=== PATIENT | female | born 1985 | race American Indian/Alaskan Native ===

== ENCOUNTER 2017-11-07 15:29 | Emergency (ER) | payer MEDICAID, OTHER ==
[2017-11-07 16:02] VITALS: BP 118/47
--- NOTE | 2017-11-07 17:08 | EDM.PDOC ---
ED HPI GENERAL MEDICAL PROBLEM - General Chief Complaint: Abdominal Pain Stated Complaint: ABD PAIN Time Seen by Provider: 11/07/17 16:20 Source of Information: Reports: Patient History Limitations: Reports: No Limitations - History of Present Illness INITIAL COMMENTS - FREE TEXT/NARRATIVE: 32-year-old female with lower abdominal pain for the past couple of days. In reviewing her record she was in [place] 3 weeks ago for similar symptoms, she says it is similar but today it somewhat worse. No fevers or chills, denies nausea or vomiting or diarrhea. No urinary symptoms. Onset: Unknown/Unsure Quality: Reports: Ache, Other (Cramping pain worse with movement) Severity: Moderate Associated Symptoms: Denies: Fever/Chills Lower Abdomen Pain Score (Numeric/FACES): 7 - Related Data Allergies Allergy/AdvReac Type Severity Reaction Status Date / Time baclofen Allergy Rash Verified 11/07/17 15:54 tramadol Allergy Rash Verified 11/07/17 15:54 Home Meds: Home Meds Ibuprofen 400 mg PO ASDIRECTED PRN 01/31/16 [History] Buprenorphine HCl/Naloxone HCl [Suboxone 4 mg-1 mg Sl Film] 1 each SL DAILY 03/20 [History] Past Medical History HEENT 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: Impaired Vision Other HEENT History: Dental caries Genitourinary 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: UTI, Recurrent 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: , 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 Psychiatric 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: Anxiety, Depression Hematologic 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: Blood Transfusion(s) - Past Surgical History GI Surgical 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: Cholecystectomy Social & Family History - Tobacco Use Smoking Status *Q: Never Smoker Years of Tobacco use: 13 Packs/Tins Daily: 1 Used Tobacco, but Quit: No Second Hand Smoke Exposure: No - Caffeine Use Caffeine Use: Reports: Soda, Tea - Alcohol Use Days Per Week of Alcohol Use: 1 Number of Drinks Per Day: 5 Total Drinks Per Week: 5 - Recreational Drug Use Recreational Drug Use: No - Living Situation & Occupation Living situation: Reports: Single, with Significant Other ED ROS GENERAL - Review of Systems Review Of Systems: See Below Constitutional: Denies: Fever, Chills, Malaise Respiratory: Denies: Shortness of Breath Cardiovascular: Denies: Chest Pain GI/Abdominal: Reports: Abdominal Pain, Constipation. Denies: Diarrhea, Nausea, Vomiting : Reports: No Symptoms Skin: Reports: No Symptoms Neurological: Reports: No Symptoms Free Text/Narrative/Comment: Patient does have irregular periods since of her child year ago. ED EXAM, GI/ABD - Physical Exam Exam: See Below Exam Limited By: No Limitations General Appearance: Alert, No Apparent Distress Eyes: Bilateral: Normal Appearance ( no jaundice) Respiratory/Chest: No Respiratory Distress, Lungs Clear, Chest Non-Tender Cardiovascular: Regular Rate, Rhythm GI/Abdominal Exam: Soft, Guarding (Patient is tender and guarding across the lower abdomen especially on the left side. Also has a mild amount of rebound tenderness.), Tender Neurological: Alert, Oriented Psychiatric: Normal Affect, Normal Mood Skin Exam: Warm, Dry Course - Vital Signs Last Recorded V/S: Last Vital Signs Temp 96.7 F 11/07/17 16:01 Pulse 56 L 11/07/17 16:01 Resp 16 11/07/17 16:01 BP 118/47 L 11/07/17 16:01 Pulse Ox 99 11/07/17 16:01 - Orders/Labs/Meds Orders: Active Orders 24 hr Category Date Time Status Abdomen Pelvis w Cont [CT] Stat Exams 11/07/17 17:07 Taken Labs: Laboratory Tests 11/07/17 11/07/17 Range/Units 16:22 16:22 WBC 9.0 (4.5-11.0) K/uL RBC 5.06 (3.30-5.50) M/uL Hgb 9.9 L D (12.0-15.0) g/dL Hct 33.2 L (36.0-48.0) % MCV 66 L (80-98) fL MCH 20 L (27-31) pg MCHC 30 L (32-36) % Plt Count 480 H (150-400) K/uL Neut % (Auto) 57 (36-66) % Lymph % (Auto) 31 (24-44) % [place] % (Auto) 8 H (2-6) % Eos % (Auto) 3 (2-4) % Baso % (Auto) 1 (0-1) % Sodium 142 (140-148) mmol/L Potassium 3.5 L (3.6-5.2) mmol/L Chloride 103 (100-108) mmol/L Carbon Dioxide 29 (21-32) mmol/L Anion Gap 13.5 (5.0-14.0) mmol/L BUN 9 (7-18) mg/dL Creatinine 0.7 (0.6-1.0) mg/dL Est Cr Clr Drug Dosing 105.74 mL/min Estimated GFR (MDRD) > 60 (>60) Glucose 126 H (74-106) mg/dL Calcium 8.5 (8.5-10.1) mg/dL Total Bilirubin 0.3 (0.2-1.0) mg/dL AST 19 D (15-37) U/L ALT 40 D (12-78) U/L Alkaline Phosphatase 124 H (46-116) U/L Total Protein 7.8 (6.4-8.2) g/dL Albumin 3.8 (3.4-5.0) g/dL Globulin 4.0 H (2.3-3.5) g/dL Albumin/Globulin Ratio 1.0 L (1.2-2.2) Lipase 83 (73-393) U/L Meds: Medications Discontinued Medications Generic Name Dose Route Start Last Admin Trade Name Vicente PRN Reason Stop Dose Admin Sodium Chloride 100 mls @ 3.5 mls/sec 11/07/17 17:30 11/07/17 17:33 Normal Saline IV 11/07/17 18:00 3.5 mls/sec ASDIRECTED MANASA Administration Iopamidol 100 ml 11/07/17 17:23 11/07/17 17:32 Isovue-300 (61%) IV 11/08/17 17:24 100 ml . DIRECTED PRN Administration RADIOLOGY EXAM Sodium Chloride 10 ml 11/07/17 17:23 11/07/17 17:32 Saline Flush FLUSH 11/07/17 23:00 10 ml ASDIRECTED PRN Administration Keep Vein Open - Re-Assessments/Exams Free Text/Narrative Re-Assessment/Exam: 11/07/17 17:45 CBC shows a normal white count, hemoglobin is 9.9. Extended Chemistry panel was not helpful. An IV was started and the patient obtained a CT scan of the abdomen and pelvis with IV contrast. 11/07/17 18:20 CT scan revealed moderate constipation. No other acute findings. When I discussed with the patient she admitted she is on stool softeners to avoid constipation while on the Suboxone but she hasn't been taking them lately. We discussed MiraLAX or other treatment forms but she is just going to restart her stool softeners and return if worsening. Departure - Departure Time of Disposition: 18:37 Disposition: Home, Self-Care 01 Condition: Good Clinical Impression: Constipation by delayed colonic transit Abdominal pain Qualifiers: Abdominal location: lower abdomen, unspecified Qualified Code(s): R10.30 - Lower abdominal pain, unspecified - Discharge Information Instructions: Constipation, Adult, [id number] Referrals: [facility] [Primary Care Provider] - Forms: ED Department Discharge Care Plan Goals: Take stool softeners as directed on a regular basis for several days, drink lots of water, and add MiraLAX if needed to increased bowel movements. Return if worsening such as fever or increased pain. - My Orders Last 24 Hours: My Active Orders 11/07/17 17:07 Abdomen Pelvis w Cont [CT] Stat - Assessment/Plan Last 24 Hours: My Active Orders 11/07/17 17:07 Abdomen Pelvis w Cont [CT] Stat
[2017-11-07] MEDS ORDERED: Iopamidol 612 MG/ML 100 ML Bottle IV PRN (17:23)
[2017-11-07] MEDS ORDERED: Sodium Chloride 0.9% 10 ML Syringe FLUSH PRN (17:23)
[2017-11-07] MEDS ORDERED: Sodium Chloride 0.9% 100 ML IV SCH (17:30)
== END 2017-11-07 18:37 | disposition home or self-care (01) ==
LOC: JP.ED 15:29
DX: K59.01 Slow transit constipation (principal); F32.9 Major depressive disorder, single episode, unspecified; Z88.5 Allergy status to narcotic agent; Z88.8 Allergy status to other drugs, medicaments and biological substances
CPT/HCPCS: 36415; 74177; 80053; 83690; 85025; 99284; J7030; J7050; Q9967; 99283

== ENCOUNTER 2019-01-02 18:17 | Emergency (ER) | payer MEDICAID ==
[2019-01-02 18:31] VITALS: BP 133/60
--- NOTE | 2019-01-02 18:37 | EDM.PDOC ---
ED HPI GENERAL MEDICAL PROBLEM - General Chief Complaint: Respiratory Problem Stated Complaint: POSSIBLE SINUS INFECTION Time Seen by Provider: 01/02/19 18:25 Source of Information: Reports: Patient History Limitations: Reports: No Limitations - History of Present Illness INITIAL COMMENTS - FREE TEXT/NARRATIVE: 33-year-old female who is 35 weeks gestation, has had worsening nasal congestion and cough over the past several days. She was evaluated yesterday for possible " labor". Intermittent fevers, and her cough is becoming productive. No shortness of breath. No abdominal pain today. She did not get an influenza vaccine. Onset: Gradual Duration: Day(s): (3-4 days) Associated Symptoms: Reports: Cough, Fever/Chills, Other (Nasal congestion). Denies: Nausea/Vomiting, Shortness of Breath Headache Pain Score (Numeric/FACES): 10 - Related Data Allergies Allergy/AdvReac Type Severity Reaction Status Date / Time baclofen Allergy Rash Verified 01/02/19 18:26 tramadol Allergy Rash Verified 01/02/19 18:26 Home Meds: Home Meds Ibuprofen 200 mg PO ASDIRECTED PRN 01/31/16 [History] Buprenorphine HCl/Naloxone HCl [Suboxone 4 mg-1 mg Sl Film] 16 mg PO DAILY 11/07 [History] Pnv No.95/Ferrous Fum/Folic AC [ Caplet] 1 each PO DAILY 01/01/19 [ History] Past Medical History HEENT 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: Impaired Vision Other HEENT History: Dental caries Genitourinary 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: UTI, Recurrent 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: , 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 Neurological 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: Concussion Psychiatric 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: Anxiety, Depression Hematologic 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: Blood Transfusion(s) - Past Surgical History GI Surgical 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: Cholecystectomy Social & Family History - Tobacco Use Smoking Status *Q: Never Smoker - Caffeine Use Caffeine Use: Reports: Soda, Tea - Recreational Drug Use Recreational Drug Use: Yes Recreational Drug Type: Reports: Heroin - Living Situation & Occupation Living situation: Reports: Single, with Significant Other ED ROS GENERAL - Review of Systems Review Of Systems: See Below Constitutional: Reports: Fever, Chills, Malaise HEENT: Reports: Rhinitis. Denies: Ear Pain, Throat Pain Respiratory: Reports: Cough. Denies: Shortness of Breath, Wheezing Cardiovascular: Denies: Chest Pain GI/Abdominal: Denies: Abdominal Pain, Nausea, Vomiting Skin: Denies: Rash Neurological: Denies: Headache ED EXAM, GENERAL - Physical Exam Exam: See Below Exam Limited By: No Limitations General Appearance: Alert, No Apparent Distress Ears: Normal TMs Nose: Other (Significant congestion, unable to breathe through nares) Throat/Mouth: Normal Inspection Respiratory/Chest: No Respiratory Distress, Lungs Clear GI/Abdominal: Non-Tender Course - Vital Signs Last Recorded V/S: Last Vital Signs Temp 97.8 F 01/02/19 18:25 Pulse 90 01/02/19 18:25 Resp 16 01/02/19 18:25 BP 133/60 01/02/19 18:25 Pulse Ox 99 01/02/19 18:25 - Re-Assessments/Exams Free Text/Narrative Re-Assessment/Exam: 01/02/19 18:37 Influenza antigens were obtained. 01/02/19 19:03 Influenza as her negative so patient will be covered for sinusitis with amoxicillin 500 mg 3 times a day for 10 days. She can recheck next week if not improving satisfactorily. Departure - Departure Time of Disposition: 19:11 Disposition: Home, Self-Care 01 Condition: Good Clinical Impression: Sinusitis Qualifiers: Sinusitis location: unspecified location Chronicity: acute Recurrence: non- recurrent Qualified Code(s): J01.90 - Acute sinusitis, unspecified - Discharge Information Instructions: Sinusitis, Adult, Pqdd-up-[id number] Referrals: Cathie Sena CNM [Primary Care Provider] - Forms: ED Department Discharge Care Plan Goals: Take amoxicillin 3 times a day until gone. Rest and fluids are important, recheck next week if not improving satisfactorily.
== END 2019-01-02 19:11 | disposition home or self-care (01) ==
LOC: JP.ED 18:17
DX: J01.90 Acute sinusitis, unspecified (principal); Z79.899 Other long term (current) drug therapy; Z88.5 Allergy status to narcotic agent; Z88.8 Allergy status to other drugs, medicaments and biological substances
CPT/HCPCS: 87804; 87804-59; 99283

== ENCOUNTER 2019-01-29 11:39 | Inpatient (IN) | payer MEDICAID ==
[2019-01-29] MEDS ORDERED: Misoprostol 50 MCG (1/2 of 100 MCG) Tab VAG ONE (14:07)
--- NOTE | 2019-01-29 14:27 | PCM.LDHP ---
<Radha Michele - Last Filed: 01/29/19 14:17> L&D History of Present Illness - General Date of Service: 01/29/19 (Induction of labor) Admit Problem/Dx: Patient Status Order with Admit Dx/Problem 01/29/19 14:04 Admission Status [Patient Status] [ADT] Routine Admission Diagnosis/Problem Admission Diagnosis/Problem Elective induction of labor planned Source of Information: Patient History Limitations: Reports: No Limitations - History of Present Illness Introduction:: 33 yo Mustapha had a clinic appointment today for follow up on possible cholestasis labs. Cholestasis labs all negative, bile salts 7. NST in clinic was non- reactive, moderate variability. She was sent to OB and give food, fluids, ambulation and still after several hours has not had a reactive NST. There is moderate variability but no accelerations. Her last BPP/NST on Friday of this week was 10/10. Discussed risks of continuing with possible cholestasis and a non-reactive NST including demise. Options given to patient included a contraction stress test or a Cytotec induction of labor. She chooses Cytotec. She is on Suboxone currently. She is also anemic, received iron infusions and last Hgb prior to hospitalization was 9.5. KATY 21.6 on last US. Hx PPH. Timing/Duration: Reports: minutes: (5-8) Location, : Reports: Abdomen Quality: Reports: Dull Severity: Moderate Pain Score: 4 Improves with: Reports: None Worsens with: Reports: None Associated Symptoms: Denies: vaginal bleeding, vaginal fluid - Related Data Allergies/Adverse Reactions: Allergies Allergy/AdvReac Type Severity Reaction Status Date / Time baclofen Allergy Rash Verified 01/02/19 18:26 tramadol Allergy Rash Verified 01/02/19 18:26 Home Medications: Home Meds Buprenorphine HCl/Naloxone HCl [Suboxone 4 mg-1 mg Sl Film] 16 mg PO DAILY 11/07 [History] Pnv No.95/Ferrous Fum/Folic AC [ Caplet] 1 each PO DAILY 01/01/19 [ History] Past Medical History HEENT 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: Impaired Vision Other HEENT History: Dental caries Genitourinary 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: UTI, Recurrent 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 MARKETING 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: , 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 , Other (See Below) ( 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) LMP (Approximate): Neurological 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: Concussion Psychiatric 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: Anxiety, Depression Hematologic 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: Blood Transfusion(s) - Past Surgical History GI Surgical 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: Cholecystectomy Social & Family History - Caffeine Use Caffeine Use: Reports: Soda, Tea - Living Situation & Occupation Living situation: Reports: Single, with Significant Other H&P Review of Systems - Review of Systems: Review Of Systems: See Below General: Reports: No Symptoms HEENT: Reports: No Symptoms Pulmonary: Reports: No Symptoms Cardiovascular: Reports: No Symptoms Gastrointestinal: Reports: No Symptoms Genitourinary: Reports: No Symptoms Musculoskeletal: Reports: No Symptoms Skin: Reports: No Symptoms Psychiatric: Reports: No Symptoms Neurological: Reports: No Symptoms Hematologic/Lymphatic: Reports: Anemia Immunologic: Reports: No Symptoms L&D Exam - Exam Exam: See Below - Vital Signs Vital Signs: Last Vital Signs Temp 35.7 C 01/29/19 11:55 Pulse 52 L 01/29/19 11:55 Resp 14 01/29/19 11:55 BP 117/73 01/29/19 11:55 Pulse Ox 97 01/29/19 11:55 Weight: 179 lb 7.3 oz - OB Specific Contraction Frequency (min): 5-8 Contraction Intensity: Mild to Moderate Movement: Active Heart Tones: Present Heart Tones per Min: 130 Heart Rate (FHR) Variability: Moderate (6-25 bmp) Presentation: Vertex Estimated Weight: 7.5# - Harrington Score Harrington Score Cervix Position: Posterior Harrington Score Consistency: Soft Harrington Score Effacement: 51-70% Harrington Score Dilation: 3-4 cm Harrington Score Infant's Station: -1 ,0 Harrington Score Total: 8 - Exam General: Alert, Oriented HEENT: PERRLA, Conjunctiva Clear, Hearing Intact, Mucosa Moist & [place], Pupils Equal, Pupils Reactive Neck: Supple, Trachea Midline Lungs: Clear to Auscultation, Normal Respiratory Effort Cardiovascular: Regular Rate, Regular Rhythm GI/Abdominal Exam: Normal Bowel Sounds, Soft, Non-Tender, No Organomegaly, No Distention, No Abnormal Bruit, No Mass, Pelvis Stable Rectal Exam: Normal Exam, Normal Rectal Tone Genitourinary: Normal external exam, Cervical dilitation, Enlarged uterus, Vaginal discharge. No: Vaginal bleeding Back Exam: Normal Inspection, Full Range of Motion Extremities: Normal Inspection, Normal Range of Motion, Non-Tender, No Pedal Edema, Normal Capillary Refill Skin: Warm, Dry, Intact Neurological: Cranial Nerves Intact, Reflexes Equal Bilateral Psychiatric: Alert, Normal Affect, Normal Mood - Problem List (1) Suboxone maintenance treatment complicating , antepartum SNOMED Code(s): 025742161, 691894215 ICD Code: O99.320 - DRUG USE COMPLICATING , UNSPECIFIED TRIMESTER; F11.20 - OPIOID DEPENDENCE, UNCOMPLICATED Status: Acute Current Visit: Yes (2) Term SNOMED Code(s): 52596102 ICD Code: Z34.80 - ENCOUNTER FOR SUPRVSN OF NORMAL , UNSP TRIMESTER Status: Acute Current Visit: Yes (3) Anemia affecting SNOMED Code(s): 46840055 ICD Code: O99.019 - ANEMIA COMPLICATING , UNSPECIFIED TRIMESTER Status: Acute Current Visit: Yes (4) NST (non-stress test) nonreactive SNOMED Code(s): 127322664, 170863630 ICD Code: O28.8 - OTHER ABNORMAL FINDINGS ON SCREENING OF MOTHER Status: Acute Current Visit: Yes Problem List Initiated/Reviewed/Updated: Yes Orders Last 24hrs: Active Orders 24 hr Category Date Time Status Admission Status [Patient Status] [ADT] Routine ADT 01/29/19 14:04 Active OB Check [OM.PC] Click to Edit Care 01/29/19 11:57 Ordered UA W/MICROSCOPIC [URIN] Routine Lab 01/29/19 11:57 Ordered Assessment/Plan Comment:: 01/29/19 Assessment: 33 yo at 39 1/7 weeks here for induction of labor due to non-reactive NST KATY slightly elevated Suboxone use in Hx PPH Harrington score 8 Plan: Cytotec 50 mcg vaginally for induction of labor Anticipate Would like an epidural for pain management <Lana Lane - Last Filed: 01/29/19 19:18> L&D History of Present Illness - General Admit Problem/Dx: Patient Status Order with Admit Dx/Problem 01/29/19 14:04 Admission Status [Patient Status] [ADT] Routine Admission Diagnosis/Problem Admission Diagnosis/Problem Elective induction of labor planned L&D Exam - Vital Signs Vital Signs: Last Vital Signs Temp 97.3 F 01/29/19 17:56 Pulse 67 01/29/19 17:56 Resp 16 01/29/19 17:56 BP 125/83 01/29/19 17:56 Pulse Ox 97 01/29/19 17:56 - Patient Data Lab Results Last 24 hrs: Laboratory Results - last 24 hr 01/29/19 01/29/19 01/29/19 Range/Units 11:57 14:42 14:45 WBC 8.4 (4.5-11.0) K/uL RBC 4.64 (3.30-5.50) M/uL Hgb 9.6 L (12.0-15.0) g/dL Hct 32.6 L (36.0-48.0) % MCV 70 L (80-98) fL MCH 21 L (27-31) pg MCHC 29 L (32-36) % Plt Count 171 (150-400) K/uL Neut % (Auto) 62 (36-66) % Lymph % (Auto) 29 (24-44) % [place] % (Auto) 7 H (2-6) % Eos % (Auto) 2 (2-4) % Baso % (Auto) 1 (0-1) % Urine Color Yellow Urine Appearance Clear Urine pH 6.0 (4.5-8.0) Ur Specific [place] 1.010 (1.008-1.030) Urine Protein Negative (NEGATIVE) mg/dL Urine Glucose (UA) Normal (NEGATIVE) mg/dL Urine Ketones Negative (NEGATIVE) mg/dL Urine Occult Blood Large (NEGATIVE) Urine Nitrite Negative (NEGATIVE) Urine Bilirubin Negative (NEGATIVE) Urine Urobilinogen Normal (NORMAL) mg/dL Ur Leukocyte Esterase Large (NEGATIVE) Urine RBC 0-5 (0-5) Urine WBC 5-10 H (0-5) Ur Epithelial Cells Moderate Amorphous Sediment Not seen Urine Bacteria Moderate Urine Mucus Not seen Urine Opiates Screen Negative (NEGATIVE) Ur Oxycodone Screen Negative (NEGATIVE) Urine Methadone Screen Negative (NEGATIVE) Ur Propoxyphene Screen Negative (NEGATIVE) Ur Barbiturates Screen Negative (NEGATIVE) Ur Tricyclics Screen Negative (NEGATIVE) Ur Phencyclidine Scrn Negative (NEGATIVE) Ur Amphetamine Screen Negative (NEGATIVE) U Methamphetamines Scrn Negative (NEGATIVE) Urine MDMA Screen Negative (NEGATIVE) U Benzodiazepines Scrn Negative (NEGATIVE) U Cocaine Metab Screen Negative (NEGATIVE) U Marijuana (THC) Screen Negative (NEGATIVE) Blood Type Gel Antibody Screen 01/29/19 Range/Units 14:45 WBC (4.5-11.0) K/uL RBC (3.30-5.50) M/uL Hgb (12.0-15.0) g/dL Hct (36.0-48.0) % MCV (80-98) fL MCH (27-31) pg MCHC (32-36) % Plt Count (150-400) K/uL Neut % (Auto) (36-66) % Lymph % (Auto) (24-44) % [place] % (Auto) (2-6) % Eos % (Auto) (2-4) % Baso % (Auto) (0-1) % Urine Color Urine Appearance Urine pH (4.5-8.0) Ur Specific [place] (1.008-1.030) Urine Protein (NEGATIVE) mg/dL Urine Glucose (UA) (NEGATIVE) mg/dL Urine Ketones (NEGATIVE) mg/dL Urine Occult Blood (NEGATIVE) Urine Nitrite (NEGATIVE) Urine Bilirubin (NEGATIVE) Urine Urobilinogen (NORMAL) mg/dL Ur Leukocyte Esterase (NEGATIVE) Urine RBC (0-5) Urine WBC (0-5) Ur Epithelial Cells Amorphous Sediment Urine Bacteria Urine Mucus Urine Opiates Screen (NEGATIVE) Ur Oxycodone Screen (NEGATIVE) Urine Methadone Screen (NEGATIVE) Ur Propoxyphene Screen (NEGATIVE) Ur Barbiturates Screen (NEGATIVE) Ur Tricyclics Screen (NEGATIVE) Ur Phencyclidine Scrn (NEGATIVE) Ur Amphetamine Screen (NEGATIVE) U Methamphetamines Scrn (NEGATIVE) Urine MDMA Screen (NEGATIVE) U Benzodiazepines Scrn (NEGATIVE) U Cocaine Metab Screen (NEGATIVE) U Marijuana (THC) Screen (NEGATIVE) Blood Type O POSITIVE Gel Antibody Screen Negative Result Diagrams: 01/29/19 14:45 Orders Last 24hrs: Active Orders 24 hr Category Date Time Status Admission Status [Patient Status] [ADT] Routine ADT 01/29/19 14:04 Active Communication Order [RC] ASDIRECTED Care 01/29/19 14:42 Active Communication Order [RC] Per Unit Routine Care 01/29/19 14:45 Active Non Stress Test [RC] Click to Edit Care 01/29/19 14:42 Active Insert Urinary Catheter [OM.PC] ASDIRECTED Care 01/29/19 14:45 Ordered Local Anesthetic Infusion Pump [RC] ASDIRECTED Care 01/29/19 14:45 Active Notify Provider Vital Signs [RC] PRN Care 01/29/19 14:43 Active Notify Provider [RC] PRN Care 01/29/19 14:42 Active OB Check [OM.PC] Click To Edit Care 01/29/19 11:57 Ordered PCEA Epidural [RC] ASDIRECTED Care 01/29/19 14:45 Active PCEA Epidural [RC] ASDIRECTED Care 01/29/19 14:45 Active Up ad Mey [RC] ASDIRECTED Care 01/29/19 14:42 Active Urinary Catheter Assessment [RC] ASDIRECTED Care 01/29/19 14:45 Active Verify Patient Consent Obtain [RC] ASDIRECTED Care 01/29/19 14:45 Active Vital Signs [RC] PER UNIT ROUTINE Care 01/29/19 14:42 Active Clear Liquid Diet [DIET] Diet 01/29/19 Lunch Active PATIENT RETYPE [BBK] Routine Lab 01/29/19 14:45 Results TYPE AND SCREEN [BBK] Routine Lab 01/29/19 14:45 Results Acetaminophen [Tylenol] Med 01/29/19 14:42 Active 650 mg PO Q4H PRN Ondansetron [Zofran] Med 01/29/19 14:42 Active 4 mg IV Q4H PRN Oxytocin/Normal Saline [Pitocin in NS 20 Units/1,000 ML Med 01/29/19 19:00 Active ] 20 unit in 1,000 ml IV TITRATE Sodium Chloride 0.9% [Saline Flush] Med 01/29/19 14:42 Active 10 ml FLUSH ASDIRECTED PRN ePHEDrine [ePHEDrine sulfate] Med 01/29/19 14:45 Active 5 mg IVPUSH ASDIRECTED PRN Epidural Catheter Management [OM.PC] Urgent Oth 01/29/19 14:45 Ordered Saline Lock Insert [OM.PC] Routine Oth 01/29/19 14:42 Ordered Resuscitation Status Routine Resus Stat 01/29/19 14:42 Ordered Medication Orders Acetaminophen (Tylenol) 650 mg PO Q4H PRN PRN Reason: Pain (Mild 1-3) and fever Ephedrine Sulfate (Ephedrine Sulfate) 5 mg IVPUSH ASDIRECTED PRN PRN Reason: BLOOD PRESSURE Oxytocin/Sodium Chloride (Pitocin In Ns 20 Units/1,000 Ml) 20 unit in 1,000 mls @ 6 mls/hr IV TITRATE MANASA; Protocol Ondansetron HCl (Zofran) 4 mg IV Q4H PRN PRN Reason: Nausea/Vomiting Sodium Chloride (Saline Flush) 10 ml FLUSH ASDIRECTED PRN PRN Reason: Keep Vein Open Assessment/Plan Comment:: I personally performed or re-performed the physical examination and medical decision making. I have verified all student documentation or findings, including history, physical exam and/or medical decision making. Lana Lane APRN, MICHEALM, CFNP
[2019-01-29] MEDS ORDERED: Acetaminophen 325 MG Tab PO PRN (14:42)
[2019-01-29] MEDS ORDERED: Sodium Chloride 0.9% 10 ML Syringe FLUSH PRN (14:42)
[2019-01-29] MEDS ORDERED: Ondansetron 4 MG/2 ML SDV IV PRN (14:42)
[2019-01-29] MEDS ORDERED: ePHEDrine 50 MG/ML SDV IVPUSH PRN ×2 (14:45→20:30)
--- NOTE | 2019-01-29 16:52 | PCM.PNLD ---
<Radha Michele - Last Filed: 01/29/19 16:53> Labor Progress Note - VS & Meds Vital Signs: Last Vital Signs Temp 35.7 C 01/29/19 12:30 Pulse 50 L 01/29/19 12:30 Resp 14 01/29/19 12:30 BP 117/73 01/29/19 12:30 Pulse Ox 98 01/29/19 12:30 Active Medications: Current Medications Acetaminophen (Tylenol) 650 mg PO Q4H PRN PRN Reason: Pain (Mild 1-3) and fever Ephedrine Sulfate (Ephedrine Sulfate) 5 mg IVPUSH ASDIRECTED PRN PRN Reason: BLOOD PRESSURE Ondansetron HCl (Zofran) 4 mg IV Q4H PRN PRN Reason: Nausea/Vomiting Sodium Chloride (Saline Flush) 10 ml FLUSH ASDIRECTED PRN PRN Reason: Keep Vein Open Discontinued Medications Lactated Ringer's (Ringers, Lactated) 1,000 mls @ 999 mls/hr IV ONETIME ONE Stop: 01/29/19 15:45 Misoprostol (Cytotec) 50 mcg VAG ONETIME ONE Stop: 01/29/19 14:08 Last Admin: 01/29/19 14:30 Dose: 50 mcg - Uterine Contractions Uterine Monitoring Mode: External [place] Contraction Frequency (min): 2-3 Contraction Duration (sec): 40-60 Contraction Intensity: Mild to Moderate Uterine Resting Tone: Soft - Monitoring Monitor Mode: External Ultrasound Heart Rate (FHR) Baseline: 130 Heart Rate (FHR) Variability: Moderate (6-25 bmp) Accelerations: Absent Decelerations: None Strip Review: Category I - Vaginal Exam Dilation (cm): 3 Effacement (Percent): 60 Station: 0 Cervical Position: Anterior Sterile Vaginal Exam Performed By: Radha Michele - Labor Progress (Free Text) Labor Progress: 01/29/19 Contractions are every 2-3 minutes and more painful per the patient. The cervix has moved from posterior to anterior. SVE 60/0. She is going to try the tub now for pain control. Category 1 tracing without accelerations, no decelerations. Membranes intact. <Lana Lane - Last Filed: 01/29/19 19:20> Labor Progress Note - VS & Meds Vital Signs: Last Vital Signs Temp 97.3 F 01/29/19 17:56 Pulse 67 01/29/19 17:56 Resp 16 01/29/19 17:56 BP 125/83 01/29/19 17:56 Pulse Ox 97 01/29/19 17:56 Active Medications: Current Medications Acetaminophen (Tylenol) 650 mg PO Q4H PRN PRN Reason: Pain (Mild 1-3) and fever Ephedrine Sulfate (Ephedrine Sulfate) 5 mg IVPUSH ASDIRECTED PRN PRN Reason: BLOOD PRESSURE Oxytocin/Sodium Chloride (Pitocin In Ns 20 Units/1,000 Ml) 20 unit in 1,000 mls @ 6 mls/hr IV TITRATE MANASA; Protocol Ondansetron HCl (Zofran) 4 mg IV Q4H PRN PRN Reason: Nausea/Vomiting Sodium Chloride (Saline Flush) 10 ml FLUSH ASDIRECTED PRN PRN Reason: Keep Vein Open Discontinued Medications Lactated Ringer's (Ringers, Lactated) 1,000 mls @ 999 mls/hr IV ONETIME ONE Stop: 01/29/19 15:45 Lactated Ringer's (Ringers, Lactated) 500 mls @ 999 mls/hr IV ONETIME ONE Stop: 01/29/19 18:57 Last Admin: 01/29/19 18:30 Dose: 999 mls/hr Misoprostol (Cytotec) 50 mcg VAG ONETIME ONE Stop: 01/29/19 14:08 Last Admin: 01/29/19 14:30 Dose: 50 mcg - Labor Progress (Free Text) Labor Progress: I personally performed or re-performed the physical examination and medical decision making. I have verified all student documentation or findings, including history, physical exam and/or medical decision making. Lana Lane APRN, CNM, CFNP
[2019-01-29] MEDS: Lactated Ringers 500 ML IV ONE (18:30)
--- NOTE | 2019-01-29 18:58 | PCM.PNLD ---
<Radha Michele - Last Filed: 01/29/19 18:53> Labor Progress Note - VS & Meds Vital Signs: Last Vital Signs Temp 36.3 C 01/29/19 17:56 Pulse 67 01/29/19 17:56 Resp 16 01/29/19 17:56 BP 125/83 01/29/19 17:56 Pulse Ox 97 01/29/19 17:56 Active Medications: Current Medications Acetaminophen (Tylenol) 650 mg PO Q4H PRN PRN Reason: Pain (Mild 1-3) and fever Ephedrine Sulfate (Ephedrine Sulfate) 5 mg IVPUSH ASDIRECTED PRN PRN Reason: BLOOD PRESSURE Lactated Ringer's (Ringers, Lactated) 500 mls @ 999 mls/hr IV ONETIME ONE Stop: 01/29/19 18:57 Last Admin: 01/29/19 18:30 Dose: 999 mls/hr Ondansetron HCl (Zofran) 4 mg IV Q4H PRN PRN Reason: Nausea/Vomiting Sodium Chloride (Saline Flush) 10 ml FLUSH ASDIRECTED PRN PRN Reason: Keep Vein Open Discontinued Medications Lactated Ringer's (Ringers, Lactated) 1,000 mls @ 999 mls/hr IV ONETIME ONE Stop: 01/29/19 15:45 Misoprostol (Cytotec) 50 mcg VAG ONETIME ONE Stop: 01/29/19 14:08 Last Admin: 01/29/19 14:30 Dose: 50 mcg - Uterine Contractions Uterine Monitoring Mode: External [place] Contraction Frequency (min): 2 Contraction Duration (sec): 50-60 Contraction Intensity: Moderate Uterine Resting Tone: Soft - Monitoring Monitor Mode: External Ultrasound Heart Rate (FHR) Baseline: 130 Heart Rate (FHR) Variability: Moderate (6-25 bmp) Accelerations: Absent Decelerations: Variable Strip Review: Category II - Vaginal Exam Dilation (cm): 3 Effacement (Percent): 60 Station: 0 Cervical Position: Anterior Sterile Vaginal Exam Performed By: Radha Michele - Labor Progress (Free Text) Labor Progress: 01/29/19 No cervical change from last check. Contractions q 2-3 minutes palpating moderate. Discussed benefits and risks of rupture including prolapsed cord, infection, increased contraction strength. She would like to proceed. AROM performed with scant amount of clear looking fluid, unable to tell fluid color for sure. Discussed augmentation with pitocin since there has been no cervical change. She is okay with this so we will start Pitocin per protocol. She is having some variable/late decelerations intermittently, has had no accelerations. Category [address] <[address]ana Lane - Last Filed: 01/29/19 19:20> Labor Progress Note - VS & Meds Vital Signs: Last Vital Signs Temp 97.3 F 01/29/19 17:56 Pulse 67 01/29/19 17:56 Resp 16 01/29/19 17:56 BP 125/83 01/29/19 17:56 Pulse Ox 97 01/29/19 17:56 Active Medications: Current Medications Acetaminophen (Tylenol) 650 mg PO Q4H PRN PRN Reason: Pain (Mild 1-3) and fever Ephedrine Sulfate (Ephedrine Sulfate) 5 mg IVPUSH ASDIRECTED PRN PRN Reason: BLOOD PRESSURE Fentanyl (Sublimaze) 100 mcg IVPUSH Q1H PRN PRN Reason: Pain (moderate 4-6) Oxytocin/Sodium Chloride (Pitocin In Ns 20 Units/1,000 Ml) 20 unit in 1,000 mls @ 6 mls/hr IV TITRATE MANASA; Protocol Ondansetron HCl (Zofran) 4 mg IV Q4H PRN PRN Reason: Nausea/Vomiting Sodium Chloride (Saline Flush) 10 ml FLUSH ASDIRECTED PRN PRN Reason: Keep Vein Open Discontinued Medications Lactated Ringer's (Ringers, Lactated) 1,000 mls @ 999 mls/hr IV ONETIME ONE Stop: 01/29/19 15:45 Lactated Ringer's (Ringers, Lactated) 500 mls @ 999 mls/hr IV ONETIME ONE Stop: 01/29/19 18:57 Last Admin: 01/29/19 18:30 Dose: 999 mls/hr Misoprostol (Cytotec) 50 mcg VAG ONETIME ONE Stop: 01/29/19 14:08 Last Admin: 01/29/19 14:30 Dose: 50 mcg - Labor Progress (Free Text) Labor Progress: I personally performed or re-performed the physical examination and medical decision making. I have verified all student documentation or findings, including history, physical exam and/or medical decision making. Lana Lane APRN, HOW[place], CFNP
[2019-01-29] MEDS ORDERED: fentaNYL 100 MCG/2 ML SDV IVPUSH PRN (19:15)
[2019-01-29] MEDS: Lactated Ringers 1,000 ML IV ONE (20:00)
[2019-01-29] MEDS ORDERED: Ropivacaine 100 ML ONE (21:34)
[2019-01-29] MEDS ORDERED: Ropivacaine 100 ML EPIDUR SCH (21:50)
[2019-01-29] MEDS ORDERED: Naloxone 0.4 MG/ML SDV IVPUSH PRN (21:50)
[2019-01-29] MEDS ORDERED: ePHEDrine 50 MG/ML SDV IV PRN ×2 (21:50→21:52)
--- NOTE | 2019-01-29 23:12 | PCM.PN ---
- General Info Date of Service: 01/29/19 Functional Status: Reports: Pain Controlled - Review of Systems General: Reports: No Symptoms HEENT: Reports: No Symptoms Pulmonary: Reports: No Symptoms Cardiovascular: Reports: No Symptoms Gastrointestinal: Reports: No Symptoms Genitourinary: Reports: No Symptoms Musculoskeletal: Reports: No Symptoms Skin: Reports: No Symptoms Neurological: Reports: No Symptoms Psychiatric: Reports: No Symptoms - Patient Data Vitals - Most Recent: Last Vital Signs Temp 97.3 F 01/29/19 17:56 Pulse 49 L 01/29/19 22:32 Resp 16 01/29/19 21:09 BP 126/81 01/29/19 22:32 Pulse Ox 99 01/29/19 22:32 Weight - Most Recent: 180 lb I&O - Last 24 Hours: Intake & Output 01/29/19 01/29/19 01/30/19 14:59 22:59 06:59 Intake Total 600 Balance 600 Lab Results Last 24 Hours: Laboratory Results - last 24 hr 01/29/19 01/29/19 01/29/19 Range/Units 11:57 14:42 14:45 WBC 8.4 (4.5-11.0) K/uL RBC 4.64 (3.30-5.50) M/uL Hgb 9.6 L (12.0-15.0) g/dL Hct 32.6 L (36.0-48.0) % MCV 70 L (80-98) fL MCH 21 L (27-31) pg MCHC 29 L (32-36) % Plt Count 171 (150-400) K/uL Neut % (Auto) 62 (36-66) % Lymph % (Auto) 29 (24-44) % [place] % (Auto) 7 H (2-6) % Eos % (Auto) 2 (2-4) % Baso % (Auto) 1 (0-1) % Urine Color Yellow Urine Appearance Clear Urine pH 6.0 (4.5-8.0) Ur Specific [place] 1.010 (1.008-1.030) Urine Protein Negative (NEGATIVE) mg/dL Urine Glucose (UA) Normal (NEGATIVE) mg/dL Urine Ketones Negative (NEGATIVE) mg/dL Urine Occult Blood Large (NEGATIVE) Urine Nitrite Negative (NEGATIVE) Urine Bilirubin Negative (NEGATIVE) Urine Urobilinogen Normal (NORMAL) mg/dL Ur Leukocyte Esterase Large (NEGATIVE) Urine RBC 0-5 (0-5) Urine WBC 5-10 H (0-5) Ur Epithelial Cells Moderate Amorphous Sediment Not seen Urine Bacteria Moderate Urine Mucus Not seen Urine Opiates Screen Negative (NEGATIVE) Ur Oxycodone Screen Negative (NEGATIVE) Urine Methadone Screen Negative (NEGATIVE) Ur Propoxyphene Screen Negative (NEGATIVE) Ur Barbiturates Screen Negative (NEGATIVE) Ur Tricyclics Screen Negative (NEGATIVE) Ur Phencyclidine Scrn Negative (NEGATIVE) Ur Amphetamine Screen Negative (NEGATIVE) U Methamphetamines Scrn Negative (NEGATIVE) Urine MDMA Screen Negative (NEGATIVE) U Benzodiazepines Scrn Negative (NEGATIVE) U Cocaine Metab Screen Negative (NEGATIVE) U Marijuana (THC) Screen Negative (NEGATIVE) Blood Type Gel Antibody Screen 01/29/19 Range/Units 14:45 WBC (4.5-11.0) K/uL RBC (3.30-5.50) M/uL Hgb (12.0-15.0) g/dL Hct (36.0-48.0) % MCV (80-98) fL MCH (27-31) pg MCHC (32-36) % Plt Count (150-400) K/uL Neut % (Auto) (36-66) % Lymph % (Auto) (24-44) % [place] % (Auto) (2-6) % Eos % (Auto) (2-4) % Baso % (Auto) (0-1) % Urine Color Urine Appearance Urine pH (4.5-8.0) Ur Specific [place] (1.008-1.030) Urine Protein (NEGATIVE) mg/dL Urine Glucose (UA) (NEGATIVE) mg/dL Urine Ketones (NEGATIVE) mg/dL Urine Occult Blood (NEGATIVE) Urine Nitrite (NEGATIVE) Urine Bilirubin (NEGATIVE) Urine Urobilinogen (NORMAL) mg/dL Ur Leukocyte Esterase (NEGATIVE) Urine RBC (0-5) Urine WBC (0-5) Ur Epithelial Cells Amorphous Sediment Urine Bacteria Urine Mucus Urine Opiates Screen (NEGATIVE) Ur Oxycodone Screen (NEGATIVE) Urine Methadone Screen (NEGATIVE) Ur Propoxyphene Screen (NEGATIVE) Ur Barbiturates Screen (NEGATIVE) Ur Tricyclics Screen (NEGATIVE) Ur Phencyclidine Scrn (NEGATIVE) Ur Amphetamine Screen (NEGATIVE) U Methamphetamines Scrn (NEGATIVE) Urine MDMA Screen (NEGATIVE) U Benzodiazepines Scrn (NEGATIVE) U Cocaine Metab Screen (NEGATIVE) U Marijuana (THC) Screen (NEGATIVE) Blood Type O POSITIVE Gel Antibody Screen Negative Med Orders - Current: Current Medications Acetaminophen (Tylenol) 650 mg PO Q4H PRN PRN Reason: Pain (Mild 1-3) and fever Ephedrine Sulfate (Ephedrine Sulfate) 5 - 10 mg IVPUSH ASDIRECTED PRN PRN Reason: BLOOD PRESSURE Ephedrine Sulfate (Ephedrine Sulfate) 10 mg IV ASDIRECTED PRN PRN Reason: Systolic BP less than 100 Fentanyl (Sublimaze) 100 mcg IVPUSH Q1H PRN PRN Reason: Pain (moderate 4-6) Oxytocin/Sodium Chloride (Pitocin In Ns 20 Units/1,000 Ml) 20 unit in 1,000 mls @ 6 mls/hr IV TITRATE MANASA; Protocol Last Titration: 01/29/19 21:02 Dose: 0 munits/min, 0 mls/hr Ropivacaine (Naropin 0.2%) 100 mls @ 0 mls/hr EPIDUR ASDIRECTED MANASA; Protocol Naloxone HCl (Narcan) 0.1 mg IVPUSH Q5M PRN PRN Reason: IF RESP RATE LESS THAN 6 Ondansetron HCl (Zofran) 4 mg IV Q4H PRN PRN Reason: Nausea/Vomiting Sodium Chloride (Saline Flush) 10 ml FLUSH ASDIRECTED PRN PRN Reason: Keep Vein Open Discontinued Medications Ephedrine Sulfate (Ephedrine Sulfate) 5 mg IVPUSH ASDIRECTED PRN PRN Reason: BLOOD PRESSURE Ephedrine Sulfate (Ephedrine Sulfate) 5 - 10 mg IV ASDIRECTED PRN PRN Reason: Systolic BP less than 100 Lactated Ringer's (Ringers, Lactated) 1,000 mls @ 999 mls/hr IV ONETIME ONE Stop: 01/29/19 15:45 Lactated Ringer's (Ringers, Lactated) 500 mls @ 999 mls/hr IV ONETIME ONE Stop: 01/29/19 18:57 Last Admin: 01/29/19 18:30 Dose: 999 mls/hr Ropivacaine (Naropin 0.2%) Confirm Administered Dose 100 mls @ as directed .ROUTE .STK-MED ONE Stop: 01/29/19 21:35 Misoprostol (Cytotec) 50 mcg VAG ONETIME ONE Stop: 01/29/19 14:08 Last Admin: 01/29/19 14:30 Dose: 50 mcg - Exam General: Alert, Oriented HEENT: Pupils Equal, Pupils Reactive Neck: Supple Lungs: Normal Respiratory Effort Cardiovascular: Regular Rate, Regular Rhythm GI/Abdominal Exam: Normal Bowel Sounds, Soft (Female) Exam: Cervical Dilatation, Enlarged Uterus, Heart Tones Back Exam: Full Range of Motion Extremities: Normal Range of Motion, No Pedal Edema, Normal Capillary Refill Skin: Warm, Dry, Intact Neurological: No New Focal Deficit Psy/Mental Status: Alert, Normal Affect, Normal Mood - Problem List & Annotations (1) Suboxone maintenance treatment complicating , antepartum SNOMED Code(s): 439689484, 128752687 Code(s): O99.320 - DRUG USE COMPLICATING , UNSPECIFIED TRIMESTER; F11.20 - OPIOID DEPENDENCE, UNCOMPLICATED Status: Acute Current Visit: Yes (2) Term SNOMED Code(s): 01286918 Code(s): Z34.80 - ENCOUNTER FOR SUPRVSN OF NORMAL , UNSP TRIMESTER Status: Acute Current Visit: Yes (3) Anemia affecting SNOMED Code(s): 56178204 Code(s): O99.019 - ANEMIA COMPLICATING , UNSPECIFIED TRIMESTER Status: Acute Current Visit: Yes (4) NST (non-stress test) nonreactive SNOMED Code(s): 700701774, 267306787 Code(s): O28.8 - OTHER ABNORMAL FINDINGS ON SCREENING OF MOTHER Status: Acute Current Visit: Yes - Problem List Review Problem List Initiated/Reviewed/Updated: Yes - My Orders Last 24 Hours: My Active Orders 01/29/19 11:57 OB Check [OM.PC] Click to Edit 01/29/19 14:04 Admission Status [Patient Status] [ADT] Routine 01/29/19 20:30 ePHEDrine [ePHEDrine sulfate] 5 - 10 mg IVPUSH ASDIRECTED PRN - Assessment Assessment:: 01/29/19 epidural working well. Baseline FHT 130, decels with every contractions, some are earlies and some appears to be late, some variables. contractions every 2-3 minutes Cat 2 strip Patient now on peanut ball, left side - Plan Plan:: I personally performed or re-performed the physical examination and medical decision making. I have verified all student documentation or findings, including history, physical exam and/or medical decision making. Lana Lane APRN, CNM, JACKIE active labor assess strip in 30 minutes for changes. planning for vaginal delivery Possible nuchal cord she should have progression, if not may need to intervene with c section if baby can't tolerate labor
[2019-01-30] MEDS ORDERED: Lanolin 100% Cream 40 GM Tube TOP PRN (00:03)
[2019-01-30] MEDS ORDERED: Ibuprofen 200 MG Tab, 24 Tab Bulk Bottle PO PRN (00:07)
[2019-01-30] MEDS ORDERED: Acetaminophen 325 MG Tab, 50 Tab Bulk Bottle PO PRN (00:07)
--- NOTE | 2019-01-30 00:16 | PCM.DEL ---
<RyneZuleymaRadha - Last Filed: 01/30/19 00:07> L & D Note - General Info Date of Service: 01/30/19 () Mother's Due Date: 02/04/19 - Delivery Note Labor: Augmented by ARM Cervical Ripening Method: Misoprostil Delivery Outcome: Livebirth Infant Delivery Method: Spontaneous Vaginal Delivery-Single Delivery Mode: Spontaneous Presentation: Right Occiput Anterior (HERB) Nuchal Cord: None Anesthesia Type: Epidural Amniotic Fluid Description: Clear Episiotomy Type: None Laceration: None Placenta: Intact, Spontaneous Cord: 3 Vessels Estimated Blood Loss: 100 Resuscitation Needed: No : Stimulated Provider: Lana Lane Score 1 min: 9 Score 5 min: 9 Second Stage Interventions: Reports: Second Nurse Assessed Progress of Descent, Second Nurse Reviewed Contraction Pattern, Second Nurse Reviewed Heart Tones, Encouragement Given, Pushing Effectively, Pushing, Feet in Foot Rests Delivery Comments (Free Text/Narrative):: 01/29/19 33 yo delivered a viable female infant at 2347 after a cytotec induction for non-reactive NST today. Pitocin was started but turned off after only about 20 minutes due to recurrent decelerations. Labor continued spontaneously from there. Her strip was category 2. She progressed very slowly to 5 cm and then quickly to complete. There was no nuchal cord. Baby delivered in HERB position. Delayed cord clamping for >60 seconds. Placenta delivered spontaneously intact, 3 vessel cord. There were no perineal lacerations, no cervical or vaginal lacerations. EBL 100 ml 1st stage: 6676-6897 2nd stage: 2578-7917 3rd stage: 2779-3309 Apgars 9, 9 Wt: 7 lb 7.9 oz Active management used in the third stage, pitocin IV given, FF bleeding scant. Induction Criteria - Harrington Score Harrington Score Dilation: 3-4 cm Harrington Score Effacement: 60-70% Harrington Score 's Station: -1 ,0 Harrington Score Consistency: Soft Harrington Score Cervix Position: Posterior Harrington Score Total: 8 Harrington Score Presenting Part: Reports: Cephalic - Induction Gestational Age >/= 39 wks: Yes Medical Indication: Non-reactive NST Estimated Pelvis: Reports: Adequate Reassuring Monitoring Strip: Yes Absence of Tachy Systole: Yes - Augmentation Estimated Pelvis: Reports: Adequate Weight Estimated:: Reports: AGA Reassuring Monitoring Strip: Yes Absence of Tachy Systole: Yes - General Info Date of Service: 01/30/19 Functional Status: Reports: Pain Controlled - Review of Systems General: Reports: No Symptoms HEENT: Reports: No Symptoms Pulmonary: Reports: No Symptoms Cardiovascular: Reports: No Symptoms Gastrointestinal: Reports: No Symptoms Genitourinary: Reports: No Symptoms Musculoskeletal: Reports: No Symptoms Skin: Reports: No Symptoms Neurological: Reports: No Symptoms Psychiatric: Reports: No Symptoms - Patient Data Vitals - Most Recent: Last Vital Signs Temp 35.9 C 01/29/19 23:26 Pulse 54 L 01/29/19 23:26 Resp 18 01/29/19 23:26 BP 108/55 L 01/29/19 23:26 Pulse Ox 94 L 01/29/19 23:26 Weight - Most Recent: 180 lb I&O - Last 24 Hours: Intake & Output 01/29/19 01/29/19 01/30/19 14:59 22:59 06:59 Intake Total 600 Balance 600 Lab Results Last 24 Hours: Laboratory Results - last 24 hr 01/29/19 01/29/19 01/29/19 Range/Units 11:57 14:42 14:45 WBC 8.4 (4.5-11.0) K/uL RBC 4.64 (3.30-5.50) M/uL Hgb 9.6 L (12.0-15.0) g/dL Hct 32.6 L (36.0-48.0) % MCV 70 L (80-98) fL MCH 21 L (27-31) pg MCHC 29 L (32-36) % Plt Count 171 (150-400) K/uL Neut % (Auto) 62 (36-66) % Lymph % (Auto) 29 (24-44) % Cocke % (Auto) 7 H (2-6) % Eos % (Auto) 2 (2-4) % Baso % (Auto) 1 (0-1) % Urine Color Yellow Urine Appearance Clear Urine pH 6.0 (4.5-8.0) Ur Specific [place] 1.010 (1.008-1.030) Urine Protein Negative (NEGATIVE) mg/dL Urine Glucose (UA) Normal (NEGATIVE) mg/dL Urine Ketones Negative (NEGATIVE) mg/dL Urine Occult Blood Large (NEGATIVE) Urine Nitrite Negative (NEGATIVE) Urine Bilirubin Negative (NEGATIVE) Urine Urobilinogen Normal (NORMAL) mg/dL Ur Leukocyte Esterase Large (NEGATIVE) Urine RBC 0-5 (0-5) Urine WBC 5-10 H (0-5) Ur Epithelial Cells Moderate Amorphous Sediment Not seen Urine Bacteria Moderate Urine Mucus Not seen Urine Opiates Screen Negative (NEGATIVE) Ur Oxycodone Screen Negative (NEGATIVE) Urine Methadone Screen Negative (NEGATIVE) Ur Propoxyphene Screen Negative (NEGATIVE) Ur Barbiturates Screen Negative (NEGATIVE) Ur Tricyclics Screen Negative (NEGATIVE) Ur Phencyclidine Scrn Negative (NEGATIVE) Ur Amphetamine Screen Negative (NEGATIVE) U Methamphetamines Scrn Negative (NEGATIVE) Urine MDMA Screen Negative (NEGATIVE) U Benzodiazepines Scrn Negative (NEGATIVE) U Cocaine Metab Screen Negative (NEGATIVE) U Marijuana (THC) Screen Negative (NEGATIVE) Blood Type Gel Antibody Screen 01/29/19 Range/Units 14:45 WBC (4.5-11.0) K/uL RBC (3.30-5.50) M/uL Hgb (12.0-15.0) g/dL Hct (36.0-48.0) % MCV (80-98) fL MCH (27-31) pg MCHC (32-36) % Plt Count (150-400) K/uL Neut % (Auto) (36-66) % Lymph % (Auto) (24-44) % Cocke % (Auto) (2-6) % Eos % (Auto) (2-4) % Baso % (Auto) (0-1) % Urine Color Urine Appearance Urine pH (4.5-8.0) Ur Specific [place] (1.008-1.030) Urine Protein (NEGATIVE) mg/dL Urine Glucose (UA) (NEGATIVE) mg/dL Urine Ketones (NEGATIVE) mg/dL Urine Occult Blood (NEGATIVE) Urine Nitrite (NEGATIVE) Urine Bilirubin (NEGATIVE) Urine Urobilinogen (NORMAL) mg/dL Ur Leukocyte Esterase (NEGATIVE) Urine RBC (0-5) Urine WBC (0-5) Ur Epithelial Cells Amorphous Sediment Urine Bacteria Urine Mucus Urine Opiates Screen (NEGATIVE) Ur Oxycodone Screen (NEGATIVE) Urine Methadone Screen (NEGATIVE) Ur Propoxyphene Screen (NEGATIVE) Ur Barbiturates Screen (NEGATIVE) Ur Tricyclics Screen (NEGATIVE) Ur Phencyclidine Scrn (NEGATIVE) Ur Amphetamine Screen (NEGATIVE) U Methamphetamines Scrn (NEGATIVE) Urine MDMA Screen (NEGATIVE) U Benzodiazepines Scrn (NEGATIVE) U Cocaine Metab Screen (NEGATIVE) U Marijuana (THC) Screen (NEGATIVE) Blood Type O POSITIVE Gel Antibody Screen Negative Med Orders - Current: Current Medications Acetaminophen (Tylenol) 650 mg PO Q4H PRN PRN Reason: Pain (Mild 1-3) and fever Ephedrine Sulfate (Ephedrine Sulfate) 5 - 10 mg IVPUSH ASDIRECTED PRN PRN Reason: BLOOD PRESSURE Ephedrine Sulfate (Ephedrine Sulfate) 10 mg IV ASDIRECTED PRN PRN Reason: Systolic BP less than 100 Fentanyl (Sublimaze) 100 mcg IVPUSH Q1H PRN PRN Reason: Pain (moderate 4-6) Oxytocin/Sodium Chloride (Pitocin In Ns 20 Units/1,000 Ml) 20 unit in 1,000 mls @ 6 mls/hr IV TITRATE MANASA; Protocol Last Titration: 01/29/19 21:02 Dose: 0 munits/min, 0 mls/hr Ropivacaine (Naropin 0.2%) 100 mls @ 0 mls/hr EPIDUR ASDIRECTED MANASA; Protocol Naloxone HCl (Narcan) 0.1 mg IVPUSH Q5M PRN PRN Reason: IF RESP RATE LESS THAN 6 Ondansetron HCl (Zofran) 4 mg IV Q4H PRN PRN Reason: Nausea/Vomiting Sodium Chloride (Saline Flush) 10 ml FLUSH ASDIRECTED PRN PRN Reason: Keep Vein Open Discontinued Medications Ephedrine Sulfate (Ephedrine Sulfate) 5 mg IVPUSH ASDIRECTED PRN PRN Reason: BLOOD PRESSURE Ephedrine Sulfate (Ephedrine Sulfate) 5 - 10 mg IV ASDIRECTED PRN PRN Reason: Systolic BP less than 100 Lactated Ringer's (Ringers, Lactated) 1,000 mls @ 999 mls/hr IV ONETIME ONE Stop: 01/29/19 15:45 Lactated Ringer's (Ringers, Lactated) 500 mls @ 999 mls/hr IV ONETIME ONE Stop: 01/29/19 18:57 Last Admin: 01/29/19 18:30 Dose: 999 mls/hr Ropivacaine (Naropin 0.2%) Confirm Administered Dose 100 mls @ as directed .ROUTE .STK-MED ONE Stop: 01/29/19 21:35 Misoprostol (Cytotec) 50 mcg VAG ONETIME ONE Stop: 01/29/19 14:08 Last Admin: 01/29/19 14:30 Dose: 50 mcg - Exam General: Alert, Oriented HEENT: Pupils Equal, Pupils Reactive, EOMI, Mucous Membr. Moist/[place] Neck: Supple Lungs: Clear to Auscultation, Normal Respiratory Effort Cardiovascular: Regular Rate, Regular Rhythm GI/Abdominal Exam: Normal Bowel Sounds, Soft, Non-Tender, No Organomegaly, No Distention, No Abnormal Bruit, No Mass, Pelvis Stable (Female) Exam: Normal External Exam, Cervical Dilatation, Enlarged Uterus, Vaginal Bleeding. No: Vaginal Tears Back Exam: Normal Inspection, Full Range of Motion Extremities: Normal Inspection, Normal Range of Motion, Non-Tender, No Pedal Edema, Normal Capillary Refill Skin: Warm, Dry, Intact Neurological: No New Focal Deficit Psy/Mental Status: Alert, Normal Affect, Normal Mood - Problem List & Annotations (1) Suboxone maintenance treatment complicating , antepartum SNOMED Code(s): 897303469, 571902552 Code(s): O99.320 - DRUG USE COMPLICATING , UNSPECIFIED TRIMESTER; F11.20 - OPIOID DEPENDENCE, UNCOMPLICATED Status: Acute Current Visit: Yes (2) Term SNOMED Code(s): 39007378 Code(s): Z34.80 - ENCOUNTER FOR SUPRVSN OF NORMAL , UNSP TRIMESTER Status: Acute Current Visit: Yes (3) Anemia affecting SNOMED Code(s): 90752146 Code(s): O99.019 - ANEMIA COMPLICATING , UNSPECIFIED TRIMESTER Status: Acute Current Visit: Yes (4) NST (non-stress test) nonreactive SNOMED Code(s): 917889947, 952902017 Code(s): O28.8 - OTHER ABNORMAL FINDINGS ON SCREENING OF MOTHER Status: Acute Current Visit: Yes (5) Vaginal delivery SNOMED Code(s): 350301648 Code(s): O80 - ENCOUNTER FOR FULL-TERM UNCOMPLICATED DELIVERY Status: Acute Current Visit: Yes - Problem List Review Problem List Initiated/Reviewed/Updated: Yes - My Orders Last 24 Hours: My Active Orders 01/29/19 14:42 Communication Order [RC] ASDIRECTED Non Stress Test [RC] Click to Edit Notify Provider [RC] PRN Up ad Mey [RC] ASDIRECTED Vital Signs [RC] PER UNIT ROUTINE Acetaminophen [Tylenol] 650 mg PO Q4H PRN Ondansetron [Zofran] 4 mg IV Q4H PRN Sodium Chloride 0.9% [Saline Flush] 10 ml FLUSH ASDIRECTED PRN Saline Lock Insert [OM.PC] Routine Resuscitation Status Routine 01/29/19 14:43 Notify Provider Vital Signs [RC] PRN 01/29/19 14:45 Communication Order [RC] Per Unit Routine Insert Urinary Catheter [OM.PC] ASDIRECTED Local Anesthetic Infusion Pump [RC] ASDIRECTED PCEA Epidural [RC] ASDIRECTED PCEA Epidural [RC] ASDIRECTED Urinary Catheter Assessment [RC] ASDIRECTED Verify Patient Consent Obtain [RC] ASDIRECTED PATIENT RETYPE [BBK] Routine TYPE AND SCREEN [BBK] Routine Epidural Catheter Management [OM.PC] Urgent 01/29/19 19:00 Oxytocin/Normal Saline [Pitocin in NS 20 Units/1,000 ML] 20 unit in 1,000 ml IV TITRATE 01/29/19 19:15 fentaNYL [Sublimaze] 100 mcg IVPUSH Q1H PRN 01/29/19 Lunch Clear Liquid Diet [DIET] 01/30/19 00:03 Patient Status [ADT] Routine Vital Signs [RC] PFP Docusate Sodium [Colace] 100 mg PO BID PRN Lanolin [Lansinoh HPA] 1 gm TOP ASDIRECTED PRN Assess Lochia [WOMSER] Per Unit Routine Assess Uterine Involution [WOMSER] Per Unit Routine 01/30/19 00:04 Ice Therapy [OM.PC] Per Unit Routine Perineal Care [OM.PC] Per Unit Routine 01/30/19 00:05 Peripheral IV Discontinue [OM.PC] Routine 01/30/19 00:07 Acetaminophen [Tylenol Bulk Bottle] 325 mg PO Q4H PRN Ibuprofen [Motrin Bulk Bottle] 600 mg PO Q6H PRN 01/30/19 05:11 CBC WITH AUTO DIFF [HEME] AM 01/30/19 Breakfast Regular Diet [DIET] - Assessment Assessment:: 01/29/19 epidural working well. Baseline FHT 130, decels with every contractions, some are earlies and some appears to be late, some variables. contractions every 2-3 minutes Cat 2 strip Patient now on peanut ball, left side 01/30/19 Intact perineum FF, bleeding scant to light - Plan Plan:: I personally performed or re-performed the physical examination and medical decision making. I have verified all student documentation or findings, including history, physical exam and/or medical decision making. Lana Lane APRN, CNM, JACKIE active labor assess strip in 30 minutes for changes. planning for vaginal delivery Possible nuchal cord she should have progression, if not may need to intervene with c section if baby can't tolerate labor 01/30/19 Routine cares Plans to breastfeed Anticipate 24-48 hour stay <Lana Lane - Last Filed: 01/30/19 00:26> - Patient Data Vitals - Most Recent: Last Vital Signs Temp 96.7 F 01/29/19 23:26 Pulse 54 L 01/29/19 23:26 Resp 18 01/29/19 23:26 BP 108/55 L 01/29/19 23:26 Pulse Ox 94 L 01/29/19 23:26 I&O - Last 24 Hours: Intake & Output 01/29/19 01/29/19 01/30/19 14:59 22:59 06:59 Intake Total 600 Balance 600 Lab Results Last 24 Hours: Laboratory Results - last 24 hr 01/29/19 01/29/19 01/29/19 Range/Units 11:57 14:42 14:45 WBC 8.4 (4.5-11.0) K/uL RBC 4.64 (3.30-5.50) M/uL Hgb 9.6 L (12.0-15.0) g/dL Hct 32.6 L (36.0-48.0) % MCV 70 L (80-98) fL MCH 21 L (27-31) pg MCHC 29 L (32-36) % Plt Count 171 (150-400) K/uL Neut % (Auto) 62 (36-66) % Lymph % (Auto) 29 (24-44) % Cocke % (Auto) 7 H (2-6) % Eos % (Auto) 2 (2-4) % Baso % (Auto) 1 (0-1) % Urine Color Yellow Urine Appearance Clear Urine pH 6.0 (4.5-8.0) Ur Specific [place] 1.010 (1.008-1.030) Urine Protein Negative (NEGATIVE) mg/dL Urine Glucose (UA) Normal (NEGATIVE) mg/dL Urine Ketones Negative (NEGATIVE) mg/dL Urine Occult Blood Large (NEGATIVE) Urine Nitrite Negative (NEGATIVE) Urine Bilirubin Negative (NEGATIVE) Urine Urobilinogen Normal (NORMAL) mg/dL Ur Leukocyte Esterase Large (NEGATIVE) Urine RBC 0-5 (0-5) Urine WBC 5-10 H (0-5) Ur Epithelial Cells Moderate Amorphous Sediment Not seen Urine Bacteria Moderate Urine Mucus Not seen Urine Opiates Screen Negative (NEGATIVE) Ur Oxycodone Screen Negative (NEGATIVE) Urine Methadone Screen Negative (NEGATIVE) Ur Propoxyphene Screen Negative (NEGATIVE) Ur Barbiturates Screen Negative (NEGATIVE) Ur Tricyclics Screen Negative (NEGATIVE) Ur Phencyclidine Scrn Negative (NEGATIVE) Ur Amphetamine Screen Negative (NEGATIVE) U Methamphetamines Scrn Negative (NEGATIVE) Urine MDMA Screen Negative (NEGATIVE) U Benzodiazepines Scrn Negative (NEGATIVE) U Cocaine Metab Screen Negative (NEGATIVE) U Marijuana (THC) Screen Negative (NEGATIVE) Blood Type Gel Antibody Screen 01/29/19 Range/Units 14:45 WBC (4.5-11.0) K/uL RBC (3.30-5.50) M/uL Hgb (12.0-15.0) g/dL Hct (36.0-48.0) % MCV (80-98) fL MCH (27-31) pg MCHC (32-36) % Plt Count (150-400) K/uL Neut % (Auto) (36-66) % Lymph % (Auto) (24-44) % Cocke % (Auto) (2-6) % Eos % (Auto) (2-4) % Baso % (Auto) (0-1) % Urine Color Urine Appearance Urine pH (4.5-8.0) Ur Specific [place] (1.008-1.030) Urine Protein (NEGATIVE) mg/dL Urine Glucose (UA) (NEGATIVE) mg/dL Urine Ketones (NEGATIVE) mg/dL Urine Occult Blood (NEGATIVE) Urine Nitrite (NEGATIVE) Urine Bilirubin (NEGATIVE) Urine Urobilinogen (NORMAL) mg/dL Ur Leukocyte Esterase (NEGATIVE) Urine RBC (0-5) Urine WBC (0-5) Ur Epithelial Cells Amorphous Sediment Urine Bacteria Urine Mucus Urine Opiates Screen (NEGATIVE) Ur Oxycodone Screen (NEGATIVE) Urine Methadone Screen (NEGATIVE) Ur Propoxyphene Screen (NEGATIVE) Ur Barbiturates Screen (NEGATIVE) Ur Tricyclics Screen (NEGATIVE) Ur Phencyclidine Scrn (NEGATIVE) Ur Amphetamine Screen (NEGATIVE) U Methamphetamines Scrn (NEGATIVE) Urine MDMA Screen (NEGATIVE) U Benzodiazepines Scrn (NEGATIVE) U Cocaine Metab Screen (NEGATIVE) U Marijuana (THC) Screen (NEGATIVE) Blood Type O POSITIVE Gel Antibody Screen Negative Med Orders - Current: Current Medications Acetaminophen (Tylenol) 650 mg PO Q4H PRN PRN Reason: Pain (Mild 1-3) and fever Acetaminophen (Tylenol Bulk Bottle) 325 mg PO Q4H PRN PRN Reason: Pain Docusate Sodium (Colace) 100 mg PO BID PRN PRN Reason: Constipation Emollient Ointment (Lansinoh Hpa) 1 gm TOP ASDIRECTED PRN PRN Reason: Sore Nipples Ephedrine Sulfate (Ephedrine Sulfate) 5 - 10 mg IVPUSH ASDIRECTED PRN PRN Reason: BLOOD PRESSURE Ephedrine Sulfate (Ephedrine Sulfate) 10 mg IV ASDIRECTED PRN PRN Reason: Systolic BP less than 100 Fentanyl (Sublimaze) 100 mcg IVPUSH Q1H PRN PRN Reason: Pain (moderate 4-6) Oxytocin/Sodium Chloride (Pitocin In Ns 20 Units/1,000 Ml) 20 unit in 1,000 mls @ 6 mls/hr IV TITRATE MANASA; Protocol Last Titration: 01/29/19 21:02 Dose: 0 munits/min, 0 mls/hr Ropivacaine (Naropin 0.2%) 100 mls @ 0 mls/hr EPIDUR ASDIRECTED MANASA; Protocol Ibuprofen (Motrin Bulk Bottle) 600 mg PO Q6H PRN PRN Reason: Pain Naloxone HCl (Narcan) 0.1 mg IVPUSH Q5M PRN PRN Reason: IF RESP RATE LESS THAN 6 Ondansetron HCl (Zofran) 4 mg IV Q4H PRN PRN Reason: Nausea/Vomiting Sodium Chloride (Saline Flush) 10 ml FLUSH ASDIRECTED PRN PRN Reason: Keep Vein Open Discontinued Medications Ephedrine Sulfate (Ephedrine Sulfate) 5 mg IVPUSH ASDIRECTED PRN PRN Reason: BLOOD PRESSURE Ephedrine Sulfate (Ephedrine Sulfate) 5 - 10 mg IV ASDIRECTED PRN PRN Reason: Systolic BP less than 100 Lactated Ringer's (Ringers, Lactated) 1,000 mls @ 999 mls/hr IV ONETIME ONE Stop: 01/29/19 15:45 Lactated Ringer's (Ringers, Lactated) 500 mls @ 999 mls/hr IV ONETIME ONE Stop: 01/29/19 18:57 Last Admin: 01/29/19 18:30 Dose: 999 mls/hr Ropivacaine (Naropin 0.2%) Confirm Administered Dose 100 mls @ as directed .ROUTE .STK-MED ONE Stop: 01/29/19 21:35 Misoprostol (Cytotec) 50 mcg VAG ONETIME ONE Stop: 01/29/19 14:08 Last Admin: 01/29/19 14:30 Dose: 50 mcg - Problem List & Annotations (1) Suboxone maintenance treatment complicating , antepartum SNOMED Code(s): 730025354, 695419315 Code(s): O99.320 - DRUG USE COMPLICATING , UNSPECIFIED TRIMESTER; F11.20 - OPIOID DEPENDENCE, UNCOMPLICATED Status: Acute Current Visit: Yes (2) Term SNOMED Code(s): 90380308 Code(s): Z34.80 - ENCOUNTER FOR SUPRVSN OF NORMAL , UNSP TRIMESTER Status: Acute Current Visit: Yes (3) Anemia affecting SNOMED Code(s): 32124226 Code(s): O99.019 - ANEMIA COMPLICATING , UNSPECIFIED TRIMESTER Status: Acute Current Visit: Yes (4) NST (non-stress test) nonreactive SNOMED Code(s): 429555825, 971899781 Code(s): O28.8 - OTHER ABNORMAL FINDINGS ON SCREENING OF MOTHER Status: Acute Current Visit: Yes - My Orders Last 24 Hours: My Active Orders 01/29/19 11:57 OB Check [OM.PC] Click To Edit 01/29/19 14:04 Admission Status [Patient Status] [ADT] Routine 01/29/19 20:30 ePHEDrine [ePHEDrine sulfate] 5 - 10 mg IVPUSH ASDIRECTED PRN - Plan Plan:: I personally performed or re-performed the physical examination and medical decision making. I have verified all student documentation or findings, including history, physical exam and/or medical decision making. Lana Lane APRN, HOWARD, CFNP
--- NOTE | 2019-01-30 02:12 | ANES ---
DATE OF SERVICE: 01/29/2019 INDICATIONS: A 33-year-old lady in the obstetrical department in active labor. She was multiparous. I was asked by Dr. Lana Lane CNM to place a labor epidural. She has had a labor epidural in the past. All questions were answered. Consent was signed. She was placed in a sitting position. DESCRIPTION OF PROCEDURE: After Betadine solution prep, the epidural was accomplished what I believe is L3-L4. I was at this level because she has rather large tattoo covering her low back. This was done x1 with a good feel. No paresthesia. No CSF. No blood. Lidocaine 1.5% with epinephrine 1:200,000; 5 mL was injected through the epidural needle. The epidural catheter was then passed easily to the four herbert and the epidural needle was removed. Catheter was taped in place. She was laid supine. Ropivacaine 0.2%, 14 mL was injected through the epidural catheter over approximately 2 minutes. She was then hooked up to a continuous infusion of ropivacaine 0.2% with infusion rate of 12 mL/h. She tolerated the procedure well and within 10 minutes was feeling significant relief from her contractions. Mauricio Aparicio CRNA /[id number]
--- NOTE | 2019-01-30 09:58 | PCM.PNPP ---
<Radha Michele - Last Filed: 01/30/19 09:52> - General Info Date of Service: 01/30/19 (PP day 1) Functional Status: Reports: Pain Controlled - Review of Systems General: Reports: No Symptoms HEENT: Reports: No Symptoms Pulmonary: Reports: No Symptoms Cardiovascular: Reports: No Symptoms Gastrointestinal: Reports: No Symptoms Genitourinary: Reports: No Symptoms Musculoskeletal: Reports: No Symptoms Skin: Reports: No Symptoms Neurological: Reports: No Symptoms Psychiatric: Reports: No Symptoms - General Info Date of Service: 01/30/19 - Patient Data Vital Signs - Most Recent: Last Vital Signs Temp 36.1 C 01/30/19 04:30 Pulse 112 H 01/30/19 04:30 Resp 18 01/30/19 04:30 BP 114/65 01/30/19 04:30 Pulse Ox 94 L 01/29/19 23:26 Weight - Most Recent: 180 lb I&O - Last 24 Hours: Intake & Output 01/29/19 01/30/19 01/30/19 22:59 06:59 14:59 Intake Total 600 3257 Balance 600 3257 Lab Results - Last 24 Hours: Laboratory Results - last 24 hr 01/29/19 01/29/19 01/29/19 Range/Units 11:57 14:42 14:45 WBC 8.4 (4.5-11.0) K/uL RBC 4.64 (3.30-5.50) M/uL Hgb 9.6 L (12.0-15.0) g/dL Hct 32.6 L (36.0-48.0) % MCV 70 L (80-98) fL MCH 21 L (27-31) pg MCHC 29 L (32-36) % Plt Count 171 (150-400) K/uL Neut % (Auto) 62 (36-66) % Lymph % (Auto) 29 (24-44) % Blair % (Auto) 7 H (2-6) % Eos % (Auto) 2 (2-4) % Baso % (Auto) 1 (0-1) % Urine Color Yellow Urine Appearance Clear Urine pH 6.0 (4.5-8.0) Ur Specific [place] 1.010 (1.008-1.030) Urine Protein Negative (NEGATIVE) mg/dL Urine Glucose (UA) Normal (NEGATIVE) mg/dL Urine Ketones Negative (NEGATIVE) mg/dL Urine Occult Blood Large (NEGATIVE) Urine Nitrite Negative (NEGATIVE) Urine Bilirubin Negative (NEGATIVE) Urine Urobilinogen Normal (NORMAL) mg/dL Ur Leukocyte Esterase Large (NEGATIVE) Urine RBC 0-5 (0-5) Urine WBC 5-10 H (0-5) Ur Epithelial Cells Moderate Amorphous Sediment Not seen Urine Bacteria Moderate Urine Mucus Not seen Urine Opiates Screen Negative (NEGATIVE) Ur Oxycodone Screen Negative (NEGATIVE) Urine Methadone Screen Negative (NEGATIVE) Ur Propoxyphene Screen Negative (NEGATIVE) Ur Barbiturates Screen Negative (NEGATIVE) Ur Tricyclics Screen Negative (NEGATIVE) Ur Phencyclidine Scrn Negative (NEGATIVE) Ur Amphetamine Screen Negative (NEGATIVE) U Methamphetamines Scrn Negative (NEGATIVE) Urine MDMA Screen Negative (NEGATIVE) U Benzodiazepines Scrn Negative (NEGATIVE) U Cocaine Metab Screen Negative (NEGATIVE) U Marijuana (THC) Screen Negative (NEGATIVE) Blood Type Gel Antibody Screen 01/29/19 01/30/19 Range/Units 14:45 05:46 WBC 10.4 (4.5-11.0) K/uL RBC 4.46 (3.30-5.50) M/uL Hgb 9.3 L (12.0-15.0) g/dL Hct 31.9 L (36.0-48.0) % MCV 72 L (80-98) fL MCH 21 L (27-31) pg MCHC 29 L (32-36) % Plt Count 163 (150-400) K/uL Neut % (Auto) 67 H (36-66) % Lymph % (Auto) 24 (24-44) % Blair % (Auto) 8 H (2-6) % Eos % (Auto) 1 L (2-4) % Baso % (Auto) 0 (0-1) % Urine Color Urine Appearance Urine pH (4.5-8.0) Ur Specific [place] (1.008-1.030) Urine Protein (NEGATIVE) mg/dL Urine Glucose (UA) (NEGATIVE) mg/dL Urine Ketones (NEGATIVE) mg/dL Urine Occult Blood (NEGATIVE) Urine Nitrite (NEGATIVE) Urine Bilirubin (NEGATIVE) Urine Urobilinogen (NORMAL) mg/dL Ur Leukocyte Esterase (NEGATIVE) Urine RBC (0-5) Urine WBC (0-5) Ur Epithelial Cells Amorphous Sediment Urine Bacteria Urine Mucus Urine Opiates Screen (NEGATIVE) Ur Oxycodone Screen (NEGATIVE) Urine Methadone Screen (NEGATIVE) Ur Propoxyphene Screen (NEGATIVE) Ur Barbiturates Screen (NEGATIVE) Ur Tricyclics Screen (NEGATIVE) Ur Phencyclidine Scrn (NEGATIVE) Ur Amphetamine Screen (NEGATIVE) U Methamphetamines Scrn (NEGATIVE) Urine MDMA Screen (NEGATIVE) U Benzodiazepines Scrn (NEGATIVE) U Cocaine Metab Screen (NEGATIVE) U Marijuana (THC) Screen (NEGATIVE) Blood Type O POSITIVE Gel Antibody Screen Negative Med Orders - Current: Current Medications Acetaminophen (Tylenol) 650 mg PO Q4H PRN PRN Reason: Pain (Mild 1-3) and fever Acetaminophen (Tylenol Bulk Bottle) 325 mg PO Q4H PRN PRN Reason: Pain Last Admin: 01/30/19 01:55 Dose: 2 tab Docusate Sodium (Colace) 100 mg PO BID PRN PRN Reason: Constipation Emollient Ointment (Lansinoh Hpa) 1 gm TOP ASDIRECTED PRN PRN Reason: Sore Nipples Last Admin: 01/30/19 01:56 Dose: 1 applicful Ephedrine Sulfate (Ephedrine Sulfate) 5 - 10 mg IVPUSH ASDIRECTED PRN PRN Reason: BLOOD PRESSURE Ephedrine Sulfate (Ephedrine Sulfate) 10 mg IV ASDIRECTED PRN PRN Reason: Systolic BP less than 100 Fentanyl (Sublimaze) 100 mcg IVPUSH Q1H PRN PRN Reason: Pain (moderate 4-6) Oxytocin/Sodium Chloride (Pitocin In Ns 20 Units/1,000 Ml) 20 unit in 1,000 mls @ 6 mls/hr IV TITRATE MA[facility]; Protocol Last Titration: 01/30/19 00:20 Dose: 250 mls/hr Ropivacaine (Naropin 0.2%) 100 mls @ 0 mls/hr EPIDUR ASDIRECTED [facility]; Protocol Ibuprofen (Motrin Bulk Bottle) 600 mg PO Q6H PRN PRN Reason: Pain Last Admin: 01/30/19 01:56 Dose: 3 tab Naloxone HCl (Narcan) 0.1 mg IVPUSH Q5M PRN PRN Reason: IF RESP RATE LESS THAN 6 Ondansetron HCl (Zofran) 4 mg IV Q4H PRN PRN Reason: Nausea/Vomiting Sodium Chloride (Saline Flush) 10 ml FLUSH ASDIRECTED PRN PRN Reason: Keep Vein Open Discontinued Medications Ephedrine Sulfate (Ephedrine Sulfate) 5 mg IVPUSH ASDIRECTED PRN PRN Reason: BLOOD PRESSURE Ephedrine Sulfate (Ephedrine Sulfate) 5 - 10 mg IV ASDIRECTED PRN PRN Reason: Systolic BP less than 100 Lactated Ringer's (Ringers, Lactated) 1,000 mls @ 999 mls/hr IV ONETIME ONE Stop: 01/29/19 15:45 Lactated Ringer's (Ringers, Lactated) 500 mls @ 999 mls/hr IV ONETIME ONE Stop: 01/29/19 18:57 Last Admin: 01/29/19 18:30 Dose: 999 mls/hr Ropivacaine (Naropin 0.2%) Confirm Administered Dose 100 mls @ as directed .ROUTE .STK-MED ONE Stop: 01/29/19 21:35 Misoprostol (Cytotec) 50 mcg VAG ONETIME ONE Stop: 01/29/19 14:08 Last Admin: 01/29/19 14:30 Dose: 50 mcg - Infant Interaction Disposition, : in Room with Family Infant Interaction: Holding Infant Infant Feeding: Attempted ; Nursed Fair/Poor, Bottle Fed Infant, Difficulty with Latch-on Support Person: Other (see below) - Recovery Exam Fundal Tone: Firms with Massage Fundal Level: 1 Fingerbreadths Above Umbilicus Fundal Placement: Midline Lochia Amount: Small Lochia Color: Rubra/Red Perineum Description: Intact, Minimal Bruising/Swelling Episiotomy/Laceration: None Bladder Status: Voiding Urinary Elimination: Voided - Exam General: Alert, Oriented HEENT: Pupils Equal Neck: Supple Lungs: Clear to Auscultation, Normal Respiratory Effort Cardiovascular: Regular Rate, Regular Rhythm GI/Abdominal Exam: Normal Bowel Sounds, Soft, Non-Tender, No Organomegaly, No Distention, No Abnormal Bruit, No Mass, Pelvis Stable Extremities: Normal Inspection, Normal Range of Motion, Non-Tender, No Pedal Edema, Normal Capillary Refill Skin: Warm, Dry, Intact Wound/Incisions: Healing Well Neurological: No New Focal Deficit Psy/Mental Status: Alert, Normal Affect, Normal Mood - Problem List & Annotations (1) Suboxone maintenance treatment complicating , antepartum SNOMED Code(s): 079335998, 808034543 Code(s): O99.320 - DRUG USE COMPLICATING , UNSPECIFIED TRIMESTER; F11.20 - OPIOID DEPENDENCE, UNCOMPLICATED Status: Acute Current Visit: Yes (2) Term SNOMED Code(s): 26905822 Code(s): Z34.80 - ENCOUNTER FOR SUPRVSN OF NORMAL , UNSP TRIMESTER Status: Acute Current Visit: Yes (3) Anemia affecting SNOMED Code(s): 16792532 Code(s): O99.019 - ANEMIA COMPLICATING , UNSPECIFIED TRIMESTER Status: Acute Current Visit: Yes (4) NST (non-stress test) nonreactive SNOMED Code(s): 452042052, 980190214 Code(s): O28.8 - OTHER ABNORMAL FINDINGS ON SCREENING OF MOTHER Status: Acute Current Visit: Yes (5) Vaginal delivery SNOMED Code(s): 584319221 Code(s): O80 - ENCOUNTER FOR FULL-TERM UNCOMPLICATED DELIVERY Status: Acute Current Visit: Yes - Problem List Review Problem List Initiated/Reviewed/Updated: Yes - My Orders Last 24 Hours: My Active Orders 01/29/19 14:42 Communication Order [RC] ASDIRECTED Notify Provider [RC] PRN Up ad Mey [RC] ASDIRECTED Vital Signs [RC] PER UNIT ROUTINE Acetaminophen [Tylenol] 650 mg PO Q4H PRN Ondansetron [Zofran] 4 mg IV Q4H PRN Sodium Chloride 0.9% [Saline Flush] 10 ml FLUSH ASDIRECTED PRN Saline Lock Insert [OM.PC] Routine Resuscitation Status Routine 01/29/19 14:43 Notify Provider Vital Signs [RC] PRN 01/29/19 14:45 Communication Order [RC] Per Unit Routine Insert Urinary Catheter [OM.PC] ASDIRECTED Verify Patient Consent Obtain [RC] ASDIRECTED Epidural Catheter Management [OM.PC] Urgent 01/29/19 19:00 Oxytocin/Normal Saline [Pitocin in NS 20 Units/1,000 ML] 20 unit in 1,000 ml IV TITRATE 01/29/19 19:15 fentaNYL [Sublimaze] 100 mcg IVPUSH Q1H PRN 01/29/19 Lunch Clear Liquid Diet [DIET] 01/30/19 00:03 Patient Status [ADT] Routine Vital Signs [RC] PFP Docusate Sodium [Colace] 100 mg PO BID PRN Lanolin [Lansinoh HPA] 1 gm TOP ASDIRECTED PRN Assess Lochia [WOMSER] Per Unit Routine Assess Uterine Involution [WOMSER] Per Unit Routine 01/30/19 00:04 Ice Therapy [OM.PC] Per Unit Routine Perineal Care [OM.PC] Per Unit Routine 01/30/19 00:05 Peripheral IV Discontinue [OM.PC] Routine 01/30/19 00:07 Acetaminophen [Tylenol Bulk Bottle] 325 mg PO Q4H PRN Ibuprofen [Motrin Bulk Bottle] 600 mg PO Q6H PRN 01/30/19 Breakfast Regular Diet [DIET] - Assessment Assessment:: 01/29/19 epidural working well. Baseline FHT 130, decels with every contractions, some are earlies and some appears to be late, some variables. contractions every 2-3 minutes Cat 2 strip Patient now on peanut ball, left side 01/30/19 Intact perineum FF, bleeding scant to light 01/30/19 Hgb 9.3, down from 9.6, asymptomatic FF, bleeding light, no clots PP day 1 doing well Bonding well with baby Breast and bottle feeding - Plan Plan:: I personally performed or re-performed the physical examination and medical decision making. I have verified all student documentation or findings, including history, physical exam and/or medical decision making. Lana Lane APRN, CNM, JACKIE 01/30/19 support Routine cares Anticipate 24-48 hour stay Restart iron for hgb <Lana Lane - Last Filed: 01/30/19 10:59> - Patient Data Vital Signs - Most Recent: Last Vital Signs Temp 97 F 01/30/19 04:30 Pulse 112 H 01/30/19 04:30 Resp 18 01/30/19 04:30 BP 114/65 03/30/19 04:30 Pulse Ox 94 L 01/29/19 23:26 I&O - Last 24 Hours: Intake & Output 01/29/19 01/30/19 01/30/19 22:59 06:59 14:59 Intake Total 600 3257 Balance 600 3257 Lab Results - Last 24 Hours: Laboratory Results - last 24 hr 01/29/19 01/29/19 01/29/19 Range/Units 11:57 14:42 14:45 WBC 8.4 (4.5-11.0) K/uL RBC 4.64 (3.30-5.50) M/uL Hgb 9.6 L (12.0-15.0) g/dL Hct 32.6 L (36.0-48.0) % MCV 70 L (80-98) fL MCH 21 L (27-31) pg MCHC 29 L (32-36) % Plt Count 171 (150-400) K/uL Neut % (Auto) 62 (36-66) % Lymph % (Auto) 29 (24-44) % Blair % (Auto) 7 H (2-6) % Eos % (Auto) 2 (2-4) % Baso % (Auto) 1 (0-1) % Urine Color Yellow Urine Appearance Clear Urine pH 6.0 (4.5-8.0) Ur Specific [place] 1.010 (1.008-1.030) Urine Protein Negative (NEGATIVE) mg/dL Urine Glucose (UA) Normal (NEGATIVE) mg/dL Urine Ketones Negative (NEGATIVE) mg/dL Urine Occult Blood Large (NEGATIVE) Urine Nitrite Negative (NEGATIVE) Urine Bilirubin Negative (NEGATIVE) Urine Urobilinogen Normal (NORMAL) mg/dL Ur Leukocyte Esterase Large (NEGATIVE) Urine RBC 0-5 (0-5) Urine WBC 5-10 H (0-5) Ur Epithelial Cells Moderate Amorphous Sediment Not seen Urine Bacteria Moderate Urine Mucus Not seen Urine Opiates Screen Negative (NEGATIVE) Ur Oxycodone Screen Negative (NEGATIVE) Urine Methadone Screen Negative (NEGATIVE) Ur Propoxyphene Screen Negative (NEGATIVE) Ur Barbiturates Screen Negative (NEGATIVE) Ur Tricyclics Screen Negative (NEGATIVE) Ur Phencyclidine Scrn Negative (NEGATIVE) Ur Amphetamine Screen Negative (NEGATIVE) U Methamphetamines Scrn Negative (NEGATIVE) Urine MDMA Screen Negative (NEGATIVE) U Benzodiazepines Scrn Negative (NEGATIVE) U Cocaine Metab Screen Negative (NEGATIVE) U Marijuana (THC) Screen Negative (NEGATIVE) Blood Type Gel Antibody Screen 01/29/19 01/30/19 Range/Units 14:45 05:46 WBC 10.4 (4.5-11.0) K/uL RBC 4.46 (3.30-5.50) M/uL Hgb 9.3 L (12.0-15.0) g/dL Hct 31.9 L (36.0-48.0) % MCV 72 L (80-98) fL MCH 21 L (27-31) pg MCHC 29 L (32-36) % Plt Count 163 (150-400) K/uL Neut % (Auto) 67 H (36-66) % Lymph % (Auto) 24 (24-44) % Blair % (Auto) 8 H (2-6) % Eos % (Auto) 1 L (2-4) % Baso % (Auto) 0 (0-1) % Urine Color Urine Appearance Urine pH (4.5-8.0) Ur Specific [place] (1.008-1.030) Urine Protein (NEGATIVE) mg/dL Urine Glucose (UA) (NEGATIVE) mg/dL Urine Ketones (NEGATIVE) mg/dL Urine Occult Blood (NEGATIVE) Urine Nitrite (NEGATIVE) Urine Bilirubin (NEGATIVE) Urine Urobilinogen (NORMAL) mg/dL Ur Leukocyte Esterase (NEGATIVE) Urine RBC (0-5) Urine WBC (0-5) Ur Epithelial Cells Amorphous Sediment Urine Bacteria Urine Mucus Urine Opiates Screen (NEGATIVE) Ur Oxycodone Screen (NEGATIVE) Urine Methadone Screen (NEGATIVE) Ur Propoxyphene Screen (NEGATIVE) Ur Barbiturates Screen (NEGATIVE) Ur Tricyclics Screen (NEGATIVE) Ur Phencyclidine Scrn (NEGATIVE) Ur Amphetamine Screen (NEGATIVE) U Methamphetamines Scrn (NEGATIVE) Urine MDMA Screen (NEGATIVE) U Benzodiazepines Scrn (NEGATIVE) U Cocaine Metab Screen (NEGATIVE) U Marijuana (THC) Screen (NEGATIVE) Blood Type O POSITIVE Gel Antibody Screen Negative Med Orders - Current: Current Medications Acetaminophen (Tylenol) 650 mg PO Q4H PRN PRN Reason: Pain (Mild 1-3) and fever Acetaminophen (Tylenol Bulk Bottle) 325 mg PO Q4H PRN PRN Reason: Pain Last Admin: 01/30/19 01:55 Dose: 2 tab Docusate Sodium (Colace) 100 mg PO BID PRN PRN Reason: Constipation Emollient Ointment (Lansinoh Hpa) 1 gm TOP ASDIRECTED PRN PRN Reason: Sore Nipples Last Admin: 01/30/19 01:56 Dose: 1 applicful Ephedrine Sulfate (Ephedrine Sulfate) 5 - 10 mg IVPUSH ASDIRECTED PRN PRN Reason: BLOOD PRESSURE Ephedrine Sulfate (Ephedrine Sulfate) 10 mg IV ASDIRECTED PRN PRN Reason: Systolic BP less than 100 Fentanyl (Sublimaze) 100 mcg IVPUSH Q1H PRN PRN Reason: Pain (moderate 4-6) Ferrous Sulfate (Ferrous Sulfate) 325 mg PO WITHBREAKFAST [facility] Oxytocin/Sodium Chloride (Pitocin In Ns 20 Units/1,000 Ml) 20 unit in 1,000 mls @ 6 mls/hr IV TITRATE MANASA; Protocol Last Titration: 01/30/19 00:20 Dose: 250 mls/hr Ropivacaine (Naropin 0.2%) 100 mls @ 0 mls/hr EPIDUR ASDIRECTED [facility]; Protocol Ibuprofen (Motrin Bulk Bottle) 600 mg PO Q6H PRN PRN Reason: Pain Last Admin: 01/30/19 01:56 Dose: 3 tab Naloxone HCl (Narcan) 0.1 mg IVPUSH Q5M PRN PRN Reason: IF RESP RATE LESS THAN 6 Ondansetron HCl (Zofran) 4 mg IV Q4H PRN PRN Reason: Nausea/Vomiting Sodium Chloride (Saline Flush) 10 ml FLUSH ASDIRECTED PRN PRN Reason: Keep Vein Open Discontinued Medications Ephedrine Sulfate (Ephedrine Sulfate) 5 mg IVPUSH ASDIRECTED PRN PRN Reason: BLOOD PRESSURE Ephedrine Sulfate (Ephedrine Sulfate) 5 - 10 mg IV ASDIRECTED PRN PRN Reason: Systolic BP less than 100 Lactated Ringer's (Ringers, Lactated) 1,000 mls @ 999 mls/hr IV ONETIME ONE Stop: 01/29/19 15:45 Lactated Ringer's (Ringers, Lactated) 500 mls @ 999 mls/hr IV ONETIME ONE Stop: 01/29/19 18:57 Last Admin: 01/29/19 18:30 Dose: 999 mls/hr Ropivacaine (Naropin 0.2%) Confirm Administered Dose 100 mls @ as directed .ROUTE .STK-MED ONE Stop: 01/29/19 21:35 Misoprostol (Cytotec) 50 mcg VAG ONETIME ONE Stop: 01/29/19 14:08 Last Admin: 01/29/19 14:30 Dose: 50 mcg - Problem List & Annotations (1) Suboxone maintenance treatment complicating , antepartum SNOMED Code(s): 320655720, 191182851 Code(s): O99.320 - DRUG USE COMPLICATING , UNSPECIFIED TRIMESTER; F11.20 - OPIOID DEPENDENCE, UNCOMPLICATED Status: Acute Current Visit: Yes (2) Term SNOMED Code(s): 95389066 Code(s): Z34.80 - ENCOUNTER FOR SUPRVSN OF NORMAL , UNSP TRIMESTER Status: Acute Current Visit: Yes (3) Anemia affecting SNOMED Code(s): 42717830 Code(s): O99.019 - ANEMIA COMPLICATING , UNSPECIFIED TRIMESTER Status: Acute Current Visit: Yes (4) NST (non-stress test) nonreactive SNOMED Code(s): 033355363, 612016671 Code(s): O28.8 - OTHER ABNORMAL FINDINGS ON SCREENING OF MOTHER Status: Acute Current Visit: Yes - My Orders Last 24 Hours: My Active Orders 01/29/19 11:57 OB Check [OM.PC] Click To Edit 01/29/19 14:04 Admission Status [Patient Status] [ADT] Routine 01/29/19 20:30 ePHEDrine [ePHEDrine sulfate] 5 - 10 mg IVPUSH ASDIRECTED PRN - Plan Plan:: I personally performed or re-performed the physical examination and medical decision making. I have verified all student documentation or findings, including history, physical exam and/or medical decision making. Lana Lane APRN, HOW[place], CFNP
[2019-01-30] MEDS: Ferrous Sulfate 325 MG Tab PO SCH (14:37)
[2019-01-30] MEDS: Docusate Sodium 100 MG Cap PO PRN (14:39)
[2019-01-31] MEDS: Lactated Ringers 500 ML IV ONE (06:20)
[2019-01-31] MEDS: Lactated Ringers 1,000 ML IV ONE (06:24)
--- NOTE | 2019-01-31 10:39 | PCM.PNPP ---
<RyneZuleymaRadha - Last Filed: 01/31/19 10:33> - General Info Date of Service: 01/31/19 (PP day 2) Functional Status: Reports: Pain Controlled - Review of Systems General: Reports: No Symptoms HEENT: Reports: No Symptoms Pulmonary: Reports: No Symptoms Cardiovascular: Reports: No Symptoms Gastrointestinal: Reports: No Symptoms Genitourinary: Reports: No Symptoms Musculoskeletal: Reports: No Symptoms Skin: Reports: No Symptoms Neurological: Reports: No Symptoms Psychiatric: Reports: No Symptoms - General Info Date of Service: 01/31/19 - Patient Data Vital Signs - Most Recent: Last Vital Signs Temp 35.9 C 01/30/19 20:30 Pulse 46 L 01/30/19 20:30 Resp 16 01/30/19 20:30 BP 120/67 01/30/19 20:30 Pulse Ox 94 L 01/30/19 20:30 Weight - Most Recent: 180 lb Med Orders - Current: Current Medications Acetaminophen (Tylenol) 650 mg PO Q4H PRN PRN Reason: Pain (Mild 1-3) and fever Acetaminophen (Tylenol Bulk Bottle) 325 mg PO Q4H PRN PRN Reason: Pain Last Admin: 01/30/19 01:55 Dose: 2 tab Docusate Sodium (Colace) 100 mg PO BID PRN PRN Reason: Constipation Last Admin: 01/30/19 14:39 Dose: 100 mg Emollient Ointment (Lansinoh Hpa) 1 gm TOP ASDIRECTED PRN PRN Reason: Sore Nipples Last Admin: 01/30/19 01:56 Dose: 1 applicful Ephedrine Sulfate (Ephedrine Sulfate) 5 - 10 mg IVPUSH ASDIRECTED PRN PRN Reason: BLOOD PRESSURE Ephedrine Sulfate (Ephedrine Sulfate) 10 mg IV ASDIRECTED PRN PRN Reason: Systolic BP less than 100 Fentanyl (Sublimaze) 100 mcg IVPUSH Q1H PRN PRN Reason: Pain (moderate 4-6) Ferrous Sulfate (Ferrous Sulfate) 325 mg PO WITHBREAKFAST MANASA Last Admin: 01/30/19 14:37 Dose: 325 mg Oxytocin/Sodium Chloride (Pitocin In Ns 20 Units/1,000 Ml) 20 unit in 1,000 mls @ 6 mls/hr IV TITRATE MANASA; Protocol Last Titration: 01/30/19 00:20 Dose: 250 mls/hr Ropivacaine (Naropin 0.2%) 100 mls @ 0 mls/hr EPIDUR ASDIRECTED MANASA; Protocol Ibuprofen (Motrin Bulk Bottle) 600 mg PO Q6H PRN PRN Reason: Pain Last Admin: 01/30/19 01:56 Dose: 3 tab Naloxone HCl (Narcan) 0.1 mg IVPUSH Q5M PRN PRN Reason: IF RESP RATE LESS THAN 6 Ondansetron HCl (Zofran) 4 mg IV Q4H PRN PRN Reason: Nausea/Vomiting Sodium Chloride (Saline Flush) 10 ml FLUSH ASDIRECTED PRN PRN Reason: Keep Vein Open Discontinued Medications Ephedrine Sulfate (Ephedrine Sulfate) 5 mg IVPUSH ASDIRECTED PRN PRN Reason: BLOOD PRESSURE Ephedrine Sulfate (Ephedrine Sulfate) 5 - 10 mg IV ASDIRECTED PRN PRN Reason: Systolic BP less than 100 Lactated Ringer's (Ringers, Lactated) 1,000 mls @ 999 mls/hr IV ONETIME ONE Stop: 01/29/19 15:45 Last Admin: 01/31/19 06:24 Dose: Not Given Lactated Ringer's (Ringers, Lactated) 500 mls @ 999 mls/hr IV ONETIME ONE Stop: 01/29/19 18:57 Last Admin: 01/31/19 06:20 Dose: Not Given Ropivacaine (Naropin 0.2%) Confirm Administered Dose 100 mls @ as directed .ROUTE .STK-MED ONE Stop: 01/29/19 21:35 Misoprostol (Cytotec) 50 mcg VAG ONETIME ONE Stop: 01/29/19 14:08 Last Admin: 01/29/19 14:30 Dose: 50 mcg - Interaction Infant Disposition, : [place] in Room with Family Interaction: Holding Infant Feeding: Bottle Fed , Breastfed ; Nursed Well, Difficulty with Latch-on, Encouraged to Breastfeed Support Person: Other (see below) - Recovery Exam Fundal Tone: Firms with Massage Fundal Level: At Umbilicus Fundal Placement: Midline Lochia Amount: Moderate Lochia Color: Rubra/Red Perineum Description: Intact, Minimal Bruising/Swelling Episiotomy/Laceration: None Bladder Status: Nonpalpable, Voiding Urinary Elimination: Voided - Exam General: Alert, Oriented HEENT: Pupils Equal Neck: Supple Lungs: Clear to Auscultation, Normal Respiratory Effort Cardiovascular: Regular Rate, Regular Rhythm GI/Abdominal Exam: Normal Bowel Sounds, Soft, Non-Tender, No Organomegaly, No Distention, No Abnormal Bruit, No Mass, Pelvis Stable Extremities: Normal Inspection, Normal Range of Motion, Non-Tender, No Pedal Edema, Normal Capillary Refill Skin: Warm, Dry, Intact Neurological: No New Focal Deficit Psy/Mental Status: Alert, Normal Affect, Normal Mood - Problem List & Annotations (1) Suboxone maintenance treatment complicating , antepartum SNOMED Code(s): 107559950, 943307194 Code(s): O99.320 - DRUG USE COMPLICATING , UNSPECIFIED TRIMESTER; F11.20 - OPIOID DEPENDENCE, UNCOMPLICATED Status: Acute Current Visit: Yes (2) Term SNOMED Code(s): 58181417 Code(s): Z34.80 - ENCOUNTER FOR SUPRVSN OF NORMAL , UNSP TRIMESTER Status: Acute Current Visit: Yes (3) Anemia affecting SNOMED Code(s): 65735475 Code(s): O99.019 - ANEMIA COMPLICATING , UNSPECIFIED TRIMESTER Status: Acute Current Visit: Yes (4) NST (non-stress test) nonreactive SNOMED Code(s): 189884485, 553901717 Code(s): O28.8 - OTHER ABNORMAL FINDINGS ON SCREENING OF MOTHER Status: Acute Current Visit: Yes (5) Vaginal delivery SNOMED Code(s): 323365829 Code(s): O80 - ENCOUNTER FOR FULL-TERM UNCOMPLICATED DELIVERY Status: Acute Current Visit: Yes - Problem List Review Problem List Initiated/Reviewed/Updated: Yes - My Orders Last 24 Hours: My Active Orders 01/30/19 10:30 Ferrous Sulfate 325 mg PO WITHBREAKFAST - Assessment Assessment:: 01/29/19 epidural working well. Baseline FHT 130, decels with every contractions, some are earlies and some appears to be late, some variables. contractions every 2-3 minutes Cat 2 strip Patient now on peanut ball, left side 01/30/19 Intact perineum FF, bleeding scant to light 01/30/19 Hgb 9.3, down from 9.6, asymptomatic FF, bleeding light, no clots PP day 1 doing well Bonding well with baby Breast and bottle feeding 01/31/19 PP day 2, doing well FF, bleeding light Bonding well with baby going better than yesterday, supplementing with formula as well for hyperbilirubinemia - Plan Plan:: I personally performed or re-performed the physical examination and medical decision making. I have verified all student documentation or findings, including history, physical exam and/or medical decision making. Lana Lane APRN, CNM, JACKIE 01/31/19 Routine cares support Anticipate discharge home tomorrow <Lana Lane - Last Filed: 01/31/19 11:04> - Patient Data Vital Signs - Most Recent: Last Vital Signs Temp 96.6 F 01/30/19 20:30 Pulse 46 L 01/30/19 20:30 Resp 16 01/30/19 20:30 BP 120/67 01/30/19 20:30 Pulse Ox 94 L 01/30/19 20:30 Med Orders - Current: Current Medications Acetaminophen (Tylenol) 650 mg PO Q4H PRN PRN Reason: Pain (Mild 1-3) and fever Acetaminophen (Tylenol Bulk Bottle) 325 mg PO Q4H PRN PRN Reason: Pain Last Admin: 01/30/19 01:55 Dose: 2 tab Docusate Sodium (Colace) 100 mg PO BID PRN PRN Reason: Constipation Last Admin: 01/30/19 14:39 Dose: 100 mg Emollient Ointment (Lansinoh Hpa) 1 gm TOP ASDIRECTED PRN PRN Reason: Sore Nipples Last Admin: 01/30/19 01:56 Dose: 1 applicful Ephedrine Sulfate (Ephedrine Sulfate) 5 - 10 mg IVPUSH ASDIRECTED PRN PRN Reason: BLOOD PRESSURE Ephedrine Sulfate (Ephedrine Sulfate) 10 mg IV ASDIRECTED PRN PRN Reason: Systolic BP less than 100 Fentanyl (Sublimaze) 100 mcg IVPUSH Q1H PRN PRN Reason: Pain (moderate 4-6) Ferrous Sulfate (Ferrous Sulfate) 325 mg PO WITHBREAKFAST [facility] Last Admin: 01/30/19 14:37 Dose: 325 mg Oxytocin/Sodium Chloride (Pitocin In Ns 20 Units/1,000 Ml) 20 unit in 1,000 mls @ 6 mls/hr IV TITRATE MANASA; Protocol Last Titration: 01/30/19 00:20 Dose: 250 mls/hr Ropivacaine (Naropin 0.2%) 100 mls @ 0 mls/hr EPIDUR ASDIRECTED MANASA; Protocol Ibuprofen (Motrin Bulk Bottle) 600 mg PO Q6H PRN PRN Reason: Pain Last Admin: 01/30/19 01:56 Dose: 3 tab Naloxone HCl (Narcan) 0.1 mg IVPUSH Q5M PRN PRN Reason: IF RESP RATE LESS THAN 6 Ondansetron HCl (Zofran) 4 mg IV Q4H PRN PRN Reason: Nausea/Vomiting Sodium Chloride (Saline Flush) 10 ml FLUSH ASDIRECTED PRN PRN Reason: Keep Vein Open Discontinued Medications Ephedrine Sulfate (Ephedrine Sulfate) 5 mg IVPUSH ASDIRECTED PRN PRN Reason: BLOOD PRESSURE Ephedrine Sulfate (Ephedrine Sulfate) 5 - 10 mg IV ASDIRECTED PRN PRN Reason: Systolic BP less than 100 Lactated Ringer's (Ringers, Lactated) 1,000 mls @ 999 mls/hr IV ONETIME ONE Stop: 01/29/19 15:45 Last Admin: 01/31/19 06:24 Dose: Not Given Lactated Ringer's (Ringers, Lactated) 500 mls @ 999 mls/hr IV ONETIME ONE Stop: 01/29/19 18:57 Last Admin: 01/31/19 06:20 Dose: Not Given Ropivacaine (Naropin 0.2%) Confirm Administered Dose 100 mls @ as directed .ROUTE .STK-MED ONE Stop: 01/29/19 21:35 Misoprostol (Cytotec) 50 mcg VAG ONETIME ONE Stop: 01/29/19 14:08 Last Admin: 01/29/19 14:30 Dose: 50 mcg - Problem List & Annotations (1) Suboxone maintenance treatment complicating , antepartum SNOMED Code(s): 446929454, 546256332 Code(s): O99.320 - DRUG USE COMPLICATING , UNSPECIFIED TRIMESTER; F11.20 - OPIOID DEPENDENCE, UNCOMPLICATED Status: Acute Current Visit: Yes (2) Term SNOMED Code(s): 16725179 Code(s): Z34.80 - ENCOUNTER FOR SUPRVSN OF NORMAL , UNSP TRIMESTER Status: Acute Current Visit: Yes (3) Anemia affecting SNOMED Code(s): 84891748 Code(s): O99.019 - ANEMIA COMPLICATING , UNSPECIFIED TRIMESTER Status: Acute Current Visit: Yes (4) NST (non-stress test) nonreactive SNOMED Code(s): 560194290, 773615494 Code(s): O28.8 - OTHER ABNORMAL FINDINGS ON SCREENING OF MOTHER Status: Acute Current Visit: Yes - Plan Plan:: I personally performed or re-performed the physical examination and medical decision making. I have verified all student documentation or findings, including history, physical exam and/or medical decision making.Lana Lane APRN, CNM, CFNP
[2019-01-31] MEDS: Docusate Sodium 100 MG Cap PO PRN (11:27)
[2019-01-31] MEDS: Ferrous Sulfate 325 MG Tab PO SCH (11:27)
--- NOTE | 2019-02-01 07:57 | PCM.PNPP ---
- General Info Date of Service: 02/01/19 (PPD 2 D/C) Admission Dx/Problem (Free Text): Patient Status Order with Admit Dx/Problem 01/29/19 14:04 Admission Status [Patient Status] [ADT] Routine Admission Diagnosis/Problem Admission Diagnosis/Problem Elective induction of labor planned Functional Status: Reports: Pain Controlled - Review of Systems General: Reports: No Symptoms HEENT: Reports: No Symptoms Pulmonary: Reports: No Symptoms Cardiovascular: Reports: No Symptoms Gastrointestinal: Reports: No Symptoms Genitourinary: Reports: No Symptoms Musculoskeletal: Reports: No Symptoms Skin: Reports: No Symptoms Neurological: Reports: No Symptoms Psychiatric: Reports: No Symptoms - General Info Date of Service: 02/01/19 - Patient Data Vital Signs - Most Recent: Last Vital Signs Temp 96.6 F 02/01/19 02:58 Pulse 43 L 02/01/19 02:58 Resp 16 02/01/19 02:58 BP 133/67 02/01/19 02:58 Pulse Ox 95 02/01/19 02:58 Weight - Most Recent: 180 lb I&O - Last 24 Hours: Intake & Output 01/31/19 02/01/19 02/01/19 22:59 06:59 14:59 Intake Total 2500 Balance 2500 Med Orders - Current: Current Medications Acetaminophen (Tylenol) 650 mg PO Q4H PRN PRN Reason: Pain (Mild 1-3) and fever Acetaminophen (Tylenol Bulk Bottle) 325 mg PO Q4H PRN PRN Reason: Pain Last Admin: 01/30/19 01:55 Dose: 2 tab Docusate Sodium (Colace) 100 mg PO BID PRN PRN Reason: Constipation Last Admin: 01/31/19 11:27 Dose: 100 mg Emollient Ointment (Lansinoh Hpa) 1 gm TOP ASDIRECTED PRN PRN Reason: Sore Nipples Last Admin: 01/30/19 01:56 Dose: 1 applicful Ephedrine Sulfate (Ephedrine Sulfate) 5 - 10 mg IVPUSH ASDIRECTED PRN PRN Reason: BLOOD PRESSURE Ephedrine Sulfate (Ephedrine Sulfate) 10 mg IV ASDIRECTED PRN PRN Reason: Systolic BP less than 100 Fentanyl (Sublimaze) 100 mcg IVPUSH Q1H PRN PRN Reason: Pain (moderate 4-6) Ferrous Sulfate (Ferrous Sulfate) 325 mg PO WITHBREAKFAST MANASA Last Admin: 01/31/19 11:27 Dose: 325 mg Oxytocin/Sodium Chloride (Pitocin In Ns 20 Units/1,000 Ml) 20 unit in 1,000 mls @ 6 mls/hr IV TITRATE MANASA; Protocol Last Titration: 01/30/19 00:20 Dose: 250 mls/hr Ropivacaine (Naropin 0.2%) 100 mls @ 0 mls/hr EPIDUR ASDIRECTED MANASA; Protocol Ibuprofen (Motrin Bulk Bottle) 600 mg PO Q6H PRN PRN Reason: Pain Last Admin: 01/30/19 01:56 Dose: 3 tab Naloxone HCl (Narcan) 0.1 mg IVPUSH Q5M PRN PRN Reason: IF RESP RATE LESS THAN 6 Ondansetron HCl (Zofran) 4 mg IV Q4H PRN PRN Reason: Nausea/Vomiting Sodium Chloride (Saline Flush) 10 ml FLUSH ASDIRECTED PRN PRN Reason: Keep Vein Open Discontinued Medications Ephedrine Sulfate (Ephedrine Sulfate) 5 mg IVPUSH ASDIRECTED PRN PRN Reason: BLOOD PRESSURE Ephedrine Sulfate (Ephedrine Sulfate) 5 - 10 mg IV ASDIRECTED PRN PRN Reason: Systolic BP less than 100 Lactated Ringer's (Ringers, Lactated) 1,000 mls @ 999 mls/hr IV ONETIME ONE Stop: 01/29/19 15:45 Last Admin: 01/31/19 06:24 Dose: Not Given Lactated Ringer's (Ringers, Lactated) 500 mls @ 999 mls/hr IV ONETIME ONE Stop: 01/29/19 18:57 Last Admin: 01/31/19 06:20 Dose: Not Given Ropivacaine (Naropin 0.2%) Confirm Administered Dose 100 mls @ as directed .ROUTE .STK-MED ONE Stop: 01/29/19 21:35 Misoprostol (Cytotec) 50 mcg VAG ONETIME ONE Stop: 01/29/19 14:08 Last Admin: 01/29/19 14:30 Dose: 50 mcg - Infant Interaction Infant Disposition, : in Room with Family Interaction: Holding Infant Feeding: Bottle Fed Infant, Breastfed ; Nursed Well, Difficulty with Latch-on, Encouraged to Breastfeed Support Person: Other (see below) - Recovery Exam Fundal Tone: Firm Fundal Level: 2 Fingerbreadths Below Umbilicus Fundal Placement: Midline Lochia Amount: Small Lochia Color: Rubra/Red Perineum Description: Intact, Minimal Bruising/Swelling Episiotomy/Laceration: None Bladder Status: Nonpalpable, Voiding Urinary Elimination: Voided - Exam General: Alert, Oriented HEENT: Pupils Equal Neck: Supple Lungs: Clear to Auscultation, Normal Respiratory Effort Cardiovascular: Regular Rate, Regular Rhythm GI/Abdominal Exam: Normal Bowel Sounds, Soft, Non-Tender, Pelvis Stable Extremities: Normal Inspection, Normal Range of Motion, Non-Tender, No Pedal Edema, Normal Capillary Refill Skin: Warm, Dry, Intact Wound/Incisions: Healing Well Neurological: No New Focal Deficit Psy/Mental Status: Alert, Normal Affect, Normal Mood - Problem List & Annotations (1) Suboxone maintenance treatment complicating , antepartum SNOMED Code(s): 204105949, 513553567 Code(s): O99.320 - DRUG USE COMPLICATING , UNSPECIFIED TRIMESTER; F11.20 - OPIOID DEPENDENCE, UNCOMPLICATED Status: Acute Current Visit: Yes (2) Term SNOMED Code(s): 36463452 Code(s): Z34.80 - ENCOUNTER FOR SUPRVSN OF NORMAL , UNSP TRIMESTER Status: Acute Current Visit: Yes (3) Anemia affecting SNOMED Code(s): 78647388 Code(s): O99.019 - ANEMIA COMPLICATING , UNSPECIFIED TRIMESTER Status: Acute Current Visit: Yes (4) NST (non-stress test) nonreactive SNOMED Code(s): 397837607, 286694302 Code(s): O28.8 - OTHER ABNORMAL FINDINGS ON SCREENING OF MOTHER Status: Acute Current Visit: Yes - Problem List Review Problem List Initiated/Reviewed/Updated: Yes - Assessment Assessment:: 01/29/19 epidural working well. Baseline FHT 130, decels with every contractions, some are earlies and some appears to be late, some variables. contractions every 2-3 minutes Cat 2 strip Patient now on peanut ball, left side 01/30/19 Intact perineum FF, bleeding scant to light 01/30/19 Hgb 9.3, down from 9.6, asymptomatic FF, bleeding light, no clots PP day 1 doing well Bonding well with baby Breast and bottle feeding 01/31/19 PP day 2, doing well FF, bleeding light Bonding well with baby going better than yesterday, supplementing with formula as well for hyperbilirubinemia 02/01/19 Doing well, happy Breasts soft, latching OK, is supplementing Some cramping, light flow voiding without problem hgb 9.3 - Plan Plan:: I personally performed or re-performed the physical examination and medical decision making. I have verified all student documentation or findings, including history, physical exam and/or medical decision making.Lana Lane APRN, CNM, JACKIE 02/01/19 Home today post visit 6 weeks with Daisy LAWRENCE order for electric breast pump written.
[2019-02-01 08:49] VITALS: BP 120/65
[2019-02-01] MEDS: Ferrous Sulfate 325 MG Tab PO SCH (11:51)
== END 2019-02-01 13:15 | disposition home or self-care (01) | DRG 806 ==
LOC: JP.OBCHECK 11:39 → JP.OB 14:04 → OBSVTOIN 23:47 → JP.OB 23:47 → JP.MS 01-30 04:00
PROVIDERS: ADMIT Nurse Practitioner Family; ATTEND Nurse Practitioner Family
PROC: 10E0XZZ Delivery of Products of Conception, External Approach (ICD-10-PCS; principal; 2019-01-29)
PROC: 3E0P7VZ Introduction of Hormone into Female Reproductive, Via Natural or Artificial Opening (ICD-10-PCS; 2019-01-29)
PROC: 10907ZC Drainage of Amniotic Fluid, Therapeutic from Products of Conception, Via Natural or Artificial Opening (ICD-10-PCS; 2019-01-29)
PROC: 00HU33Z Insertion of Infusion Device into Spinal Canal, Percutaneous Approach (ICD-10-PCS; 2019-01-29)
DX: O99.02 Anemia complicating childbirth (principal); O99.324 Drug use complicating childbirth; Z37.0 Single live birth; F11.20 Opioid dependence, uncomplicated; O76 Abnormality in fetal heart rate and rhythm complicating labor and delivery; Z3A.39 39 weeks gestation of pregnancy; Z88.8 Allergy status to other drugs, medicaments and biological substances
CPT/HCPCS: 36415; 51702; 59409; 80305-QW; 81001; 85025; 86850; 86900; 86901; 99211; A9270-GY; J2590; J2795; J7120

== ENCOUNTER 2019-03-25 11:15 | Emergency (ER) | payer MEDICAID ==
[2019-03-25] MEDS ORDERED: Ondansetron 4 MG/2 ML SDV IVPUSH ONE ×2 (11:54→14:36)
[2019-03-25] MEDS ORDERED: HYDROmorphone 0.5 MG/0.5 ML Syringe IVPUSH ONE (11:54)
[2019-03-25] MEDS ORDERED: Sodium Chloride 0.9% 1,000 ML IV SCH ×2 (12:00→13:15)
--- NOTE | 2019-03-25 12:35 | EDM.PDOC ---
ED HPI GENERAL MEDICAL PROBLEM - General Chief Complaint: Abdominal Pain Stated Complaint: SHARP PAIN IN STOMACH Time Seen by Provider: 03/25/19 12:32 Source of Information: Reports: Patient History Limitations: Reports: No Limitations - History of Present Illness INITIAL COMMENTS - FREE TEXT/NARRATIVE: pt arrived with sharp pain in the upper abdoman. She is nauseated and is vomiting. She had a baby in January. She has not had a period since that time. She did just have a depo shot. She has had her GB removed. Onset: Today, Sudden Duration: Hour(s):, Other (upper abdomanal pain) Location: Reports: Abdomen Associated Symptoms: Reports: Loss of Appetite, Nausea/Vomiting, Weakness upper abd Pain Score (Numeric/FACES): 10 - Related Data Allergies Allergy/AdvReac Type Severity Reaction Status Date / Time baclofen Allergy Rash Verified 03/25/19 11:59 tramadol Allergy Rash Verified 03/25/19 11:59 Home Meds: Home Meds Buprenorphine HCl/Naloxone HCl [Suboxone 4 mg-1 mg Sl Film] 16 mg PO DAILY 11/07 [History] Sertraline [Zoloft] 25 mg PO DAILY 03/25/19 [History] Past Medical History HEENT 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: Impaired Vision Other HEENT History: Dental caries Gastrointestinal 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: None Genitourinary 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: UTI, Recurrent 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: , 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 , Other (See Below) Other SWIMMING TEACHER History: placenta acretia with last delivery Neurological 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: Concussion Psychiatric 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: Anxiety, Depression Hematologic 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: Anemia, Blood Transfusion(s), Iron Deficiency - Past Surgical History GI Surgical 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: Cholecystectomy Social & Family History - Tobacco Use Smoking Status *Q: Never Smoker - Caffeine Use Caffeine Use: Reports: Soda - Recreational Drug Use Recreational Drug Use: No - Living Situation & Occupation Living situation: Reports: Single, with Significant Other ED ROS GENERAL - Review of Systems Review Of Systems: See Below Constitutional: Reports: Weakness, Decreased Appetite HEENT: Reports: No Symptoms Respiratory: Reports: No Symptoms Cardiovascular: Reports: No Symptoms Endocrine: Reports: No Symptoms GI/Abdominal: Reports: Abdominal Pain, Other (pt has had upper abdomanal pain. ) : Reports: No Symptoms Musculoskeletal: Reports: No Symptoms Skin: Reports: No Symptoms Neurological: Reports: No Symptoms Psychiatric: Reports: No Symptoms ED EXAM, GI/ABD - Physical Exam Exam: See Below Text/Narrative:: pt arrived with acute upper abdomanal pain. she states this started this am. Pt was vomiting. She is on suboxone. She delivered a baby about 2 monthes ago. Her Gb has been removed. Exam Limited By: No Limitations General Appearance: Alert, Moderate Distress Ears: Normal TMs Nose: Normal Inspection Throat/Mouth: Normal Inspection Head: Atraumatic Neck: Normal Inspection Respiratory/Chest: No Respiratory Distress Cardiovascular: Regular Rate, Rhythm GI/Abdominal Exam: Other ( tender in the upper abdoman. she is not guarded. ) (Female) Exam: Deferred Rectal (Female) Exam: Deferred Back Exam: Normal Inspection Extremities: Normal Inspection Neurological: Alert, Oriented, Normal Cognition Psychiatric: Normal Affect Course - Vital Signs Last Recorded V/S: Last Vital Signs Temp 35.9 C 03/25/19 11:34 Pulse 49 L 03/25/19 15:37 Resp 13 03/25/19 11:34 BP 107/62 03/25/19 15:37 Pulse Ox 98 03/25/19 15:37 - Orders/Labs/Meds Orders: Active Orders 24 hr Category Date Time Status CULTURE URINE [RM] Stat Lab 03/25/19 13:27 Received Iopamidol [Isovue-300 (61%)] Med 03/25/19 13:30 Active 100 ml IV . DIRECTED Sodium Chloride 0.9% [Normal Saline] 1,000 ml Med 03/25/19 12:00 Active IV ASDIRECTED Sodium Chloride 0.9% [Normal Saline] 1,000 ml Med 03/25/19 13:15 Active IV ASDIRECTED Medication Orders Sodium Chloride (Normal Saline) 1,000 mls @ 999 mls/hr IV ASDIRECTED MANASA Last Admin: 03/25/19 12:12 Dose: 999 mls/hr Sodium Chloride (Normal Saline) 1,000 mls @ 999 mls/hr IV ASDIRECTED MANASA Last Admin: 03/25/19 13:40 Dose: 999 mls/hr Iopamidol (Isovue-300 (61%)) 100 ml IV . DIRECTED MANASA Stop: 03/25/19 23:00 Last Admin: 03/25/19 14:26 Dose: 100 ml Labs: Laboratory Tests 0503/25/19 03/25/19 Range/Units 11:58 11:58 11:58 WBC 12.0 H (4.5-11.0) K/uL RBC 5.19 (3.30-5.50) M/uL Hgb 13.9 D (12.0-15.0) g/dL Hct 42.9 (36.0-48.0) % MCV 83 (80-98) fL MCH 27 (27-31) pg MCHC 32 (32-36) % Plt Count 290 (150-400) K/uL Neut % (Auto) 74 H (36-66) % Lymph % (Auto) 18 L (24-44) % Mccone % (Auto) 7 H (2-6) % Eos % (Auto) 2 (2-4) % Baso % (Auto) 0 (0-1) % Sodium 142 (140-148) mmol/L Potassium 3.9 (3.6-5.2) mmol/L Chloride 104 (100-108) mmol/L Carbon Dioxide 29 (21-32) mmol/L Anion Gap 9.3 (5.0-14.0) mmol/L BUN 19 H D (7-18) mg/dL Creatinine 0.9 (0.6-1.0) mg/dL Est Cr Clr Drug Dosing 81.50 mL/min Estimated GFR (MDRD) > 60 (>60) Glucose 99 (74-106) mg/dL Calcium 9.1 (8.5-10.1) mg/dL Total Bilirubin 0.5 D (0.2-1.0) mg/dL AST 94 H D (15-37) U/L ALT 118 H (12-78) U/L Alkaline Phosphatase 129 H (46-116) U/L C-Reactive Protein 0.09 (0.0-0.3) mg/dL Total Protein 8.0 (6.4-8.2) g/dL Albumin 3.9 (3.4-5.0) g/dL Globulin 4.1 H (2.3-3.5) g/dL Albumin/Globulin Ratio 1.0 L (1.2-2.2) Amylase 54 (25-115) U/L Lipase 167 (73-393) U/L Urine Color Urine Appearance Urine pH (4.5-8.0) Ur Specific [place] (1.008-1.030) Urine Protein (NEGATIVE) mg/dL Urine Glucose (UA) (NEGATIVE) mg/dL Urine Ketones (NEGATIVE) mg/dL Urine Occult Blood (NEGATIVE) Urine Nitrite (NEGATIVE) Urine Bilirubin (NEGATIVE) Urine Urobilinogen (NORMAL) mg/dL Ur Leukocyte Esterase (NEGATIVE) Urine RBC (0-5) Urine WBC (0-5) Ur Epithelial Cells Amorphous Sediment Urine Bacteria Urine Mucus Urine HCG, Qual 03/25/19 03/25/19 Range/Units 13:10 13:10 WBC (4.5-11.0) K/uL RBC (3.30-5.50) M/uL Hgb (12.0-15.0) g/dL Hct (36.0-48.0) % MCV (80-98) fL MCH (27-31) pg MCHC (32-36) % Plt Count (150-400) K/uL Neut % (Auto) (36-66) % Lymph % (Auto) (24-44) % Mccone % (Auto) (2-6) % Eos % (Auto) (2-4) % Baso % (Auto) (0-1) % Sodium (140-148) mmol/L Potassium (3.6-5.2) mmol/L Chloride (100-108) mmol/L Carbon Dioxide (21-32) mmol/L Anion Gap (5.0-14.0) mmol/L BUN (7-18) mg/dL Creatinine (0.6-1.0) mg/dL Est Cr Clr Drug Dosing mL/min Estimated GFR (MDRD) (>60) Glucose (74-106) mg/dL Calcium (8.5-10.1) mg/dL Total Bilirubin (0.2-1.0) mg/dL AST (15-37) U/L ALT (12-78) U/L Alkaline Phosphatase (46-116) U/L C-Reactive Protein (0.0-0.3) mg/dL Total Protein (6.4-8.2) g/dL Albumin (3.4-5.0) g/dL Globulin (2.3-3.5) g/dL Albumin/Globulin Ratio (1.2-2.2) Amylase (25-115) U/L Lipase (73-393) U/L Urine Color Yellow Urine Appearance Slightly cloudy Urine pH 5.0 (4.5-8.0) Ur Specific [place] 1.020 (1.008-1.030) Urine Protein Negative (NEGATIVE) mg/dL Urine Glucose (UA) Normal (NEGATIVE) mg/dL Urine Ketones Negative (NEGATIVE) mg/dL Urine Occult Blood Negative (NEGATIVE) Urine Nitrite Negative (NEGATIVE) Urine Bilirubin Negative (NEGATIVE) Urine Urobilinogen Normal (NORMAL) mg/dL Ur Leukocyte Esterase Moderate (NEGATIVE) Urine RBC Not seen (0-5) Urine WBC 5-10 H (0-5) Ur Epithelial Cells Few Amorphous Sediment Not seen Urine Bacteria Moderate Urine Mucus Many Urine HCG, Qual Negative Meds: Medications Generic Name Dose Route Start Last Admin Trade Name Freq PRN Reason Stop Dose Admin Sodium Chloride 1,000 mls @ 999 mls/hr 03/25/19 12:00 03/25/19 12:12 Normal Saline IV 999 mls/hr ASDIRECTED MANASA Administration Sodium Chloride 1,000 mls @ 999 mls/hr 03/25/19 13:15 03/25/19 13:40 Normal Saline IV 999 mls/hr ASDIRECTED MANASA Administration Iopamidol 100 ml 03/25/19 13:30 03/25/19 14:26 Isovue-300 (61%) IV 03/25/19 23:00 100 ml . DIRECTED MANASA Administration Discontinued Medications Generic Name Dose Route Start Last Admin Trade Name Freq PRN Reason Stop Dose Admin Hydromorphone HCl 0.5 mg 03/25/19 11:54 03/25/19 12:13 Dilaudid IVPUSH 03/25/19 11:55 0.5 mg ONETIME ONE Administration Sodium Chloride 80 mls @ 3.5 mls/sec 03/25/19 13:28 03/25/19 14:26 Normal Saline IV 03/25/19 13:29 3.5 mls/sec ONETIME ONE Administration Ondansetron HCl 4 mg 03/25/19 11:54 03/25/19 12:13 Zofran IVPUSH 03/25/19 11:55 4 mg ONETIME ONE Administration Ondansetron HCl 4 mg 03/25/19 14:36 03/25/19 15:23 Zofran IVPUSH 03/25/19 14:37 4 mg ONETIME ONE Administration Sodium Chloride 10 ml 03/25/19 13:28 03/25/19 15:25 Saline Flush FLUSH 03/25/19 13:29 10 ml ONETIME ONE Administration - Re-Assessments/Exams Free Text/Narrative Re-Assessment/Exam: 03/25/19 17:00 pt had a US of the Common duct which was normal. She had a cat scan of the abdoman which would suggest a enteritis. . She remains nauseated but her pain has resolved. She is keeping fluids down. Her liver enzymes were elevated. She does not admit to drinking on a regular basis. 03/25/19 17:09 She had a Us of the common duct which was neg. She had a cat scan of the abdoman which looked like a enteritis. Departure - Departure Time of Disposition: 17:05 Disposition: Home, Self-Care 01 Condition: Fair Clinical Impression: Enteritis, Elevated liver enzymes - Discharge Information Referrals: Lana Lane CNM [Primary Care Provider] - Forms: ED Department Discharge Care Plan Goals: push fluids, zoforan 4 mg q6h prn for nause. appt with ciarra Lane next week to follow up on liver enzymes. - My Orders Last 24 Hours: My Active Orders 03/25/19 12:00 Sodium Chloride 0.9% [Normal Saline] 1,000 ml IV ASDIRECTED 03/25/19 13:15 Sodium Chloride 0.9% [Normal Saline] 1,000 ml IV ASDIRECTED 03/25/19 13:27 CULTURE URINE [RM] Stat 03/25/19 13:30 Iopamidol [Isovue-300 (61%)] 100 ml IV . DIRECTED - Assessment/Plan Last 24 Hours: My Active Orders 03/25/19 12:00 Sodium Chloride 0.9% [Normal Saline] 1,000 ml IV ASDIRECTED 03/25/19 13:15 Sodium Chloride 0.9% [Normal Saline] 1,000 ml IV ASDIRECTED 03/25/19 13:27 CULTURE URINE [RM] Stat 03/25/19 13:30 Iopamidol [Isovue-300 (61%)] 100 ml IV . DIRECTED
[2019-03-25] MEDS ORDERED: Sodium Chloride 0.9% 10 ML Syringe FLUSH ONE (13:28)
[2019-03-25] MEDS ORDERED: Iopamidol 612 MG/ML 100 ML Bottle IV SCH (13:30)
--- NOTE | 2019-03-25 13:47 | CRLUS ---
HISTORY: Upper abdominal pain. Elevated liver enzymes. Cholecystectomy. TECHNIQUE: Ultrasound of the right upper quadrant. COMPARISON: CT abdomen pelvis 11/07/2017. FINDINGS: Mildly heterogeneous echogenicity of the liver. No liver lesions. No intrahepatic bile duct dilation. Cholecystectomy. Common duct measures 9 mm compatible with postcholecystectomy change. Visualized portion the pancreas is unremarkable. Right kidney measures 10.7 cm long axis. Normal renal parenchymal thickness and echogenicity. No renal mass. No hydronephrosis. IMPRESSION: 1. Mildly heterogeneous liver may be due to intrinsic liver disease. No liver lesions. 2. Cholecystectomy. Dictated by Idris Sterling MD @ Mar 25 2019 1:45PM Signed by Dr. Idris Sterling @ Mar 25 2019 1:45PM
[2019-03-25] MEDS: Sodium Chloride 0.9% 80 ML IV ONE ×2 (14:14→14:26)
[2019-03-25 15:38] VITALS: BP 107/62
--- NOTE | 2019-03-25 15:38 | CRLCT ---
INDICATION: Upper abdominal pain TECHNIQUE: CT abdomen and pelvis acquired with IV contrast. 100 mL of Isovue 300 administered. COMPARISON: 11/07/2017 FINDINGS: Lower chest: Unremarkable. Liver: Mild hepatomegaly measuring 19.4 cm craniocaudally. Spleen: Unremarkable. Pancreas: Unremarkable. Gallbladder and bile ducts: Cholecystectomy. Mild central biliary dilatation again seen, with the CBD measuring up to 1 cm, which could be related to the postcholecystectomy state, not significantly changed. Adrenal glands: Unremarkable. Kidneys: Unremarkable. GI tract: No mechanical bowel obstruction. Apparent wall thickening of few jejunal segments with mild focal regional edema in the adjacent small bowel mesentery. A normal appendix. No significant pericolonic changes. Vascular structures: Normal aortic caliber. Prominence of the parametrial and right gonadal veins. Lymph nodes: Unremarkable. Miscellaneous: No free air or significant free fluid. Pelvic Organs: Inhomogeneous uterine enhancement. No discrete bladder abnormality seen. Bones: Unremarkable for age. IMPRESSION: Apparent wall thickening of a few left abdominal jejunal segments with regional focal mesenteric edema, suggestive of a nonspecific regional enteritis. Correlate clinically. No appendicitis, diverticulitis or high-grade bowel obstruction. Postcholecystectomy changes again seen with persistent mild central biliary dilatation, which could be related to the postcholecystectomy state. Prominence of the parametrial and right gonadal veins. Correlate clinically to exclude pelvic congestion syndrome. Dictated by Abner Viera MD @ 03/25/2019 3:36:27 PM Please note that all CT scans at this facility use dose modulation, iterative reconstruction, and/or weight-based dosing when appropriate to reduce radiation dose to as low as reasonably achievable. Dictated by: Abner Viera MD @ 03/25/2019 15:36:41 (Electronically Signed)
== END 2019-03-25 17:19 | disposition home or self-care (01) ==
LOC: JP.ED 11:15
DX: K52.9 Noninfective gastroenteritis and colitis, unspecified (principal); R74.8 Abnormal levels of other serum enzymes; F41.9 Anxiety disorder, unspecified; F32.9 Major depressive disorder, single episode, unspecified; Z88.8 Allergy status to other drugs, medicaments and biological substances; Z88.5 Allergy status to narcotic agent; Z79.899 Other long term (current) drug therapy
CPT/HCPCS: 36415; 74177; 76705; 80053; 81001; 81025; 82150; 83690; 85025; 86140; 87086; 96361; 96374; 96375; 96376; 99284; J1170; J2405; J7030; Q9967

== ENCOUNTER 2019-03-25 23:54 | Emergency (ER) | payer MEDICAID ==
[2019-03-26] MEDS ORDERED: Acetaminophen 1,000 MG in Premix Bag 1 BAG IV ONE (00:15)
[2019-03-26] MEDS ORDERED: Atropine/Hyoscyamine/PHENobarbital/Scopolamine Elixir 10 ML UD PO ONE (00:16)
[2019-03-26 00:21] VITALS: BP 127/83
[2019-03-26] MEDS ORDERED: Lactated Ringers 1,000 ML IV ONE (00:40)
[2019-03-26] MEDS ORDERED: Metoclopramide 10 MG/2 ML SDV IVPUSH ONE (00:42)
[2019-03-26] MEDS ORDERED: Alum Hydrox/Mag Hydrox/Simeth 15 ML, Lidocaine 2% 15 ML PO ONE ×2 (00:43)
--- NOTE | 2019-03-26 00:48 | EDM.PDOC ---
ED HPI GENERAL MEDICAL PROBLEM - General Chief Complaint: Abdominal Pain Stated Complaint: STOMACH PAIN Time Seen by Provider: 03/26/19 00:35 Source of Information: Reports: Patient, Old Records, RN History Limitations: Reports: No Limitations - History of Present Illness INITIAL COMMENTS - FREE TEXT/NARRATIVE: 33 yo NA female presents with epigastric pain and vomiting that began about 0830h on 03/25/19. No hematemesis. Was seen in the ER and had a CT, blood work, and an Ultrasound. The CT scan showed regional thickening of the wall of the small bowel. Blood work showed some LFT elevations. She was sent home with Zofran, but has continued to have epigastric pain and vomiting. No fever. Has mainly been trying to drink clear liquids. PHx of cholecystectomy and child . Also has a pHx of narcotic abuse. Onset: Gradual Onset Date: 03/25/19 Onset Time: 08:30 Duration: Hour(s):, Constant Location: Reports: Abdomen (epigastrium) Quality: Reports: Ache Severity: Moderate Improves with: Reports: None Worsens with: Reports: Other Context: Reports: Other (See HPI) Associated Symptoms: Reports: Nausea/Vomiting. Denies: Fever/Chills Treatments DIRECTOR CHANNEL: Reports: Other (see below) (Zofran at 7 pm) Upper Abdomen Pain Score (Numeric/FACES): 10 - Related Data Allergies Allergy/AdvReac Type Severity Reaction Status Date / Time baclofen Allergy Rash Verified 03/26/19 00:13 tramadol Allergy Rash Verified 03/26/19 00:13 Home Meds: Home Meds Buprenorphine HCl/Naloxone HCl [Suboxone 4 mg-1 mg Sl Film] 16 mg PO DAILY 11/07 [History] Sertraline [Zoloft] 25 mg PO DAILY 03/25/19 [History] Ondansetron [Zofran ODT] 4 mg PO Q6H PRN 03/26/19 [History] Past Medical History HEENT 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: Impaired Vision Other HEENT History: Dental caries Gastrointestinal 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: None Genitourinary 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: UTI, Recurrent 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: , 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 , Other (See Below) Other PATIENT PORTAL REPRESENTATIVE History: placenta acretia with last delivery Neurological 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: Concussion Psychiatric 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: Anxiety, Depression Hematologic 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: Anemia, Blood Transfusion(s), Iron Deficiency - Past Surgical History GI Surgical 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: Cholecystectomy Social & Family History - Tobacco Use Smoking Status *Q: Never Smoker Second Hand Smoke Exposure: No - Caffeine Use Caffeine Use: Reports: Soda - Recreational Drug Use Recreational Drug Use: No - Living Situation & Occupation Living situation: Reports: Single, with Significant Other ED ROS GENERAL - Review of Systems Review Of Systems: See Below Constitutional: Reports: Decreased Appetite. Denies: Fever HEENT: Reports: No Symptoms Respiratory: Reports: No Symptoms Cardiovascular: Reports: No Symptoms GI/Abdominal: Reports: Abdominal Pain, Nausea, Vomiting. Denies: Black Stool, Bloody Stool, Distension, Hematemesis, Hematochezia, Melena : Reports: No Symptoms Musculoskeletal: Reports: No Symptoms Skin: Reports: No Symptoms Neurological: Reports: No Symptoms ED EXAM, GI/ABD - Physical Exam Exam: See Below Exam Limited By: No Limitations General Appearance: Alert, WD/WN, No Apparent Distress Eyes: Bilateral: Normal Appearance Ears: Normal External Exam, Normal Canal, Hearing Grossly Normal Nose: Normal Inspection, No Blood Throat/Mouth: Normal Inspection, Normal Lips, Normal Oropharynx, Normal Voice, No Airway Compromise Head: Atraumatic, Normocephalic Neck: Normal Inspection Respiratory/Chest: No Respiratory Distress, Lungs Clear, Normal Breath Sounds, No Accessory Muscle Use Cardiovascular: Regular Rate, Rhythm, No Edema GI/Abdominal Exam: Normal Bowel Sounds, Soft, No Distention, Tender ( epigastrium only). No: Distended Back Exam: Normal Inspection. No: CVA Tenderness (R), CVA Tenderness (L) Extremities: Normal Inspection, Normal Range of Motion, Non-Tender, No Pedal Edema Neurological: Alert, Oriented, CN II-XII Intact, Normal Cognition, No Motor/ Sensory Deficits Psychiatric: Normal Affect, Normal Mood Skin Exam: Warm, Dry, Intact, Normal Color, No Rash Course - Vital Signs Last Recorded V/S: Last Vital Signs Temp 36.2 C 03/26/19 00:20 Pulse 75 03/26/19 00:20 Resp 16 03/26/19 00:20 BP 127/83 03/26/19 00:20 Pulse Ox 98 03/26/19 00:20 - Orders/Labs/Meds Orders: Active Orders 24 hr Category Date Time Status Famotidine [Pepcid] Med 05/24/19 01:08 Once 40 mg PO ONETIME ONE Lactated Ringers [Ringers, Lactated] 1,000 ml Med 03/26/19 00:40 Active IV BOLUS Medication Orders Lactated Ringer's (Ringers, Lactated) 1,000 mls @ 1,000 mls/hr IV BOLUS ONE Stop: 03/26/19 01:39 Last Admin: 03/26/19 00:55 Dose: 1,000 mls/hr Labs: Laboratory Tests 03/26/19 Range/Units 00:23 WBC 8.8 (4.5-11.0) K/uL RBC 5.32 (3.30-5.50) M/uL Hgb 14.4 (12.0-15.0) g/dL Hct 43.7 (36.0-48.0) % MCV 82 (80-98) fL MCH 27 (27-31) pg MCHC 33 (32-36) % Plt Count 292 (150-400) K/uL Meds: Medications Generic Name Dose Route Start Last Admin Trade Name Freq PRN Reason Stop Dose Admin Lactated Ringer's 1,000 mls @ 1,000 mls/hr 03/26/19 00:40 03/26/19 00:55 Ringers, Lactated IV 03/26/19 01:39 1,000 mls/hr BOLUS ONE Administration Discontinued Medications Generic Name Dose Route Start Last Admin Trade Name Freq PRN Reason Stop Dose Admin Belladonna/Phenobarbital 10 ml 03/26/19 00:16 03/26/19 00:29 Elixir PO 03/26/19 00:17 10 ml ONETIME ONE Administration Al Hydroxide/Mg Hydroxide 15 0 ml 03/26/19 00:43 03/26/19 00:59 ml/ Lidocaine HCl 15 ml PO 03/26/19 00:44 30 ml ONETIME ONE Administration Acetaminophen 1,000 mg/ Premix 100 mls @ 400 mls/hr 03/26/19 00:15 03/26/19 00:37 IV 03/26/19 00:29 400 mls/hr NOW ONE Administration Metoclopramide HCl 10 mg 03/26/19 00:42 03/26/19 00:56 Reglan IVPUSH 03/26/19 00:43 10 mg ONETIME ONE Administration - Re-Assessments/Exams Free Text/Narrative Re-Assessment/Exam: 03/26/19 01:08 Pain reduced by at least 50% after GI cocktail Departure - Departure Time of Disposition: 02:00 Disposition: Home, Self-Care 01 Condition: Fair Clinical Impression: Gastritis Qualifiers: Gastritis type: unspecified gastritis Chronicity: acute Gastritis bleeding: without bleeding Qualified Code(s): K29.00 - Acute gastritis without bleeding Nausea and vomiting Qualifiers: Vomiting type: unspecified Vomiting Intractability: non-intractable Qualified Code(s): R11.2 - Nausea with vomiting, unspecified - Discharge Information *PRESCRIPTION DRUG MONITORING PROGRAM REVIEWED*: No *COPY OF PRESCRIPTION DRUG MONITORING REPORT IN PATIENT ERIKA: No Instructions: Gastritis, Adult, [id number] Referrals: PCP,None [Primary Care Provider] - Forms: ED Department Discharge Additional Instructions: Take famotidine 40 mg every evening. Add Maalox 30 ml after meals and at bedtime for further pain relief as needed. Avoid ibupofen, naproxen, or aspirin, caffeine, carbonated beverages, alcohol, or tobacco. Recheck with your provider next Friday, call for an appt. Continue your Zofran every 6 hrs as needed for nausea control. - My Orders Last 24 Hours: My Active Orders 03/26/19 00:40 Lactated Ringers [Ringers, Lactated] 1,000 ml IV BOLUS 03/26/19 01:08 Famotidine [Pepcid] 40 mg PO ONETIME ONE - Assessment/Plan Last 24 Hours: My Active Orders 03/26/19 00:40 Lactated Ringers [Ringers, Lactated] 1,000 ml IV BOLUS 03/26/19 01:08 Famotidine [Pepcid] 40 mg PO ONETIME ONE
[2019-03-26] MEDS ORDERED: Famotidine 20 MG Tab PO ONE (01:08)
== END 2019-03-26 01:50 | disposition home or self-care (01) ==
LOC: JP.ED 23:54
DX: K29.00 Acute gastritis without bleeding (principal); F41.9 Anxiety disorder, unspecified; F32.9 Major depressive disorder, single episode, unspecified; Z88.5 Allergy status to narcotic agent; Z88.8 Allergy status to other drugs, medicaments and biological substances; Z79.899 Other long term (current) drug therapy; Z90.49 Acquired absence of other specified parts of digestive tract
CPT/HCPCS: 36415; 85027; 96361; 96365; 96375; 99283; A9270; J0131; J2765; J7120

== ENCOUNTER 2020-01-24 21:27 | Emergency (ER) | payer MEDICAID ==
[2020-01-24 21:40] VITALS: BP 118/61; PULSE 58
--- NOTE | 2020-01-24 22:15 | EDM.PDOC ---
ED HPI GENERAL MEDICAL PROBLEM - General Chief Complaint: General Stated Complaint: MEDICAL Time Seen by Provider: 01/24/20 22:00 Source of Information: Reports: Patient History Limitations: Reports: No Limitations - History of Present Illness INITIAL COMMENTS - FREE TEXT/NARRATIVE: This is a 34-year-old presents with concerns of a wet bandage on her left hand. She had carpal tunnel surgery approximately 1 week ago. Today she was doing dishes and the bandages got wet. She is having no other symptoms. - Related Data Allergies Allergy/AdvReac Type Severity Reaction Status Date / Time baclofen Allergy Rash Verified 01/24/20 21:50 tramadol Allergy Rash Verified 01/24/20 21:50 Home Meds: Home Meds Buprenorphine HCl/Naloxone HCl [Suboxone 4 mg-1 mg Sl Film] 16 mg PO DAILY 11/07 [History] Sertraline [Zoloft] 25 mg PO DAILY 03/25/19 [History] Ondansetron [Zofran ODT] 4 mg PO Q6H PRN 03/26/19 [History] Pregabalin [Lyrica] 200 mg PO BID 01/24/20 [History] polyethylene glycoL 3350 [MiraLAX] 1 dose PO DAILY 01/24/20 [History] Past Medical History HEENT 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: Impaired Vision Other HEENT History: Dental caries Gastrointestinal 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: None Genitourinary 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: UTI, Recurrent 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: , 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 , Other (See Below) Other SOCIAL WORKER MASTERS History: placenta acretia with last delivery Neurological 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: Concussion Psychiatric 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: Anxiety, Depression Hematologic 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: Anemia, Blood Transfusion(s), Iron Deficiency - Past Surgical History GI Surgical 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: Cholecystectomy Social & Family History - Caffeine Use Caffeine Use: Reports: Soda - Living Situation & Occupation Living situation: Reports: Single, with Significant Other ED ROS GENERAL - Review of Systems Review Of Systems: See Below Constitutional: Reports: No Symptoms HEENT: Reports: No Symptoms Respiratory: Reports: No Symptoms Cardiovascular: Reports: No Symptoms Endocrine: Reports: No Symptoms GI/Abdominal: Reports: No Symptoms : Reports: No Symptoms Musculoskeletal: Reports: No Symptoms Skin: Reports: No Symptoms Neurological: Reports: No Symptoms Psychiatric: Reports: No Symptoms Hematologic/Lymphatic: Reports: No Symptoms Immunologic: Reports: No Symptoms ED EXAM, GENERAL - Physical Exam Exam: See Below Exam Limited By: No Limitations General Appearance: Alert, No Apparent Distress Nose: Normal Inspection Throat/Mouth: Normal Inspection Head: Atraumatic, Normocephalic Respiratory/Chest: No Respiratory Distress Cardiovascular: Regular Rate, Rhythm Extremities: Other (Incision on left palm is clean dry and intact.) Neurological: Alert, Oriented Psychiatric: Normal Affect, Normal Mood Skin Exam: Warm, Dry Course - Vital Signs Last Recorded V/S: Last Vital Signs Temp 35.4 C L 01/24/20 22:00 Pulse 58 L 01/24/20 22:00 Resp 17 01/24/20 22:00 BP 118/61 01/24/20 22:00 Pulse Ox 95 01/24/20 22:00 - Re-Assessments/Exams Free Text/Narrative Re-Assessment/Exam: 34-year-old presenting concerns of a soiled bandage over her carpal tunnel release surgery in the left hand. Surgery was 1 week ago, incision is well-appearing. Bandage was changed for the patient. She was then discharged. 01/24/20 23:36 Departure - Departure Time of Disposition: 22:15 Disposition: Home, Self-Care 01 Clinical Impression: Visit for wound check - Discharge Information Instructions: Wound Care, Adult Referrals: Cathie Sena CNM [Primary Care Provider] - Forms: ED Department Discharge Additional Instructions: Please follow up with your surgeon as planned Sepsis Event Note - Focused Exam Vital Signs: Vital Signs Temp Pulse Resp BP Pulse Ox 01/24/20 22:00 35.4 C L 58 L 17 118/61 95 01/24/20 21:39 35.4 C L 58 L 17 118/61 95 Date Exam was Performed: 01/24/20 Time Exam was Performed: 23:33
== END 2020-01-24 22:24 | disposition home or self-care (01) ==
LOC: JP.ED 21:27
DX: Z48.00 Encounter for change or removal of nonsurgical wound dressing (principal); Z88.8 Allergy status to other drugs, medicaments and biological substances; Z79.899 Other long term (current) drug therapy
CPT/HCPCS: 99282

== ENCOUNTER 2023-02-22 22:57 | Emergency (ER) | payer MEDICAID ==
[2023-02-22 23:07] VITALS: BP 118/72; PULSE 100
[2023-02-22 23:53] LABS: CORONAVIRUS COVID-19 NAA NEGATIVE (NEGATIVE)
[2023-02-23] MEDS ORDERED: Ketorolac 30 MG/ML SDV IM ONE (00:05)
[2023-02-23] MEDS ORDERED: Dexamethasone 4 MG/ML SDV PO ONE (00:05)
== END 2023-02-23 00:19 | disposition home or self-care (01) ==
LOC: JP.ED 22:57
DX: J02.9 Acute pharyngitis, unspecified (principal); F17.210 Nicotine dependence, cigarettes, uncomplicated; Z88.5 Allergy status to narcotic agent; Z88.6 Allergy status to analgesic agent; Z20.822 Contact with and (suspected) exposure to COVID-19
CPT/HCPCS: 0241U; 87081; 87880; 96372; 99282; 99283; J1885; J8540

== ENCOUNTER 2023-12-03 11:37 | Emergency (ER) | payer MEDICAID ==
[2023-12-03 12:25] VITALS: BP 115/56; PULSE 48
[2023-12-03] MEDS: Ketorolac 30 MG/ML SDV IM ONE (13:48)
[2023-12-03 13:59] LABS: CORONAVIRUS COVID-19 NAA NEGATIVE (NEGATIVE); INFLUENZA A NAA NEGATIVE (NEGATIVE); INFLUENZA B NAA NEGATIVE (NEGATIVE); RESPIRATORY SYNCYTIAL VIR NAA NEGATIVE (NEGATIVE)
== END 2023-12-03 14:28 | disposition home or self-care (01) ==
LOC: JP.ED 11:37
DX: R07.89 Other chest pain (principal); E78.00 Pure hypercholesterolemia, unspecified; Z88.6 Allergy status to analgesic agent; Z79.899 Other long term (current) drug therapy
CPT/HCPCS: 0241U; 93005; 93010; 96372; 99283; 99285; J1885

== ENCOUNTER 2025-02-12 22:47 | Emergency (ER) | payer MEDICAID ==
[2025-02-12] MEDS: Ketorolac 30 MG/ML SDV IM ONE (23:27)
[2025-02-13 00:52] LABS: BASOPHILS ABSOLUTE AUTO 0.05 K/uL (0.00-0.10); BASOPHILS PERCENT AUTO 0.6 % (0.1-1.3); EOSINOPHILS ABSOLUTE AUTO 0.36 K/uL (0.00-0.40); EOSINOPHILS PERCENT AUTO 4.2 % (0.0-5.4); HEMATOCRIT 39.3 % (34.3-46.0); HEMOGLOBIN 13.6 g/dL (11.2-15.5); IMMATURE GRAN PERCENT AUTO 0.2 % (0.0-0.7); LYMPHOCYTES ABSOLUTE AUTO 3.09 K/uL (0.8-3.3); LYMPHOCYTES PERCENT AUTO 36.2 % (11.4-47.7); MEAN CORPUSCULAR HGB CONC 34.6 g/dL (31.6-35.5); MEAN CORPUSCULAR VOLUME 89.5 fL (81.4-99.0); MONOCYTES ABSOLUTE AUTO 0.73 K/uL (0.20-0.90); MONOCYTES PERCENT AUTO 8.5 % (3.3-12.6); NEUTROPHILS ABSOLUTE AUTO 4.29 K/uL (1.0-7.6); NEUTROPHILS PERCENT AUTO 50.3 % (40.0-78.1); PLATELET COUNT,PLT 249 K/uL (130-375); RED BLOOD CELL COUNT 4.39 M/uL (3.77-5.24); WHITE BLOOD CELL COUNT,WBC 8.5 K/uL (3.2-11.0)
[2025-02-13 00:54] LABS: IMMATURE GRAN ABSOLUTE AUTO 0.02 K/uL (0.00-0.23)
[2025-02-13 01:04] LABS: ANION GAP 9.6 mmol/L (5.0-14.0); CALCIUM 8.6 mg/dL (8.5-10.1); CREATININE 0.7 mg/dL (0.6-1.0); EST CRCL DRUG DOSING (CG) 99.01 mL/min; POTASSIUM,K 3.8 mmol/L (3.6-5.2); TROPONIN I HIGH SENSITIVITY 9.8 pg/mL (<=60.3)
[2025-02-13 01:40] VITALS: BP 114/63; PULSE 46
== END 2025-02-13 01:39 | disposition home or self-care (01) ==
LOC: JP.ED 22:47
DX: M25.572 Pain in left ankle and joints of left foot (principal); R07.89 Other chest pain; E78.00 Pure hypercholesterolemia, unspecified; Z90.49 Acquired absence of other specified parts of digestive tract; Z88.5 Allergy status to narcotic agent; Z88.8 Allergy status to other drugs, medicaments and biological substances; Z79.899 Other long term (current) drug therapy
CPT/HCPCS: 36415; 71046; 73610; 73630; 80048; 84484; 85025; 93005; 96372; 99285; J1885; 93010; 99283

== ENCOUNTER 2025-06-27 01:09 | Emergency (ER) | payer MEDICAID ==
[2025-06-27 01:23] VITALS: BP 140/89; PULSE 85
[2025-06-27] MEDS: Ketorolac 30 MG/ML SDV IM ONE (01:40)
== END 2025-06-27 02:00 | disposition home or self-care (01) ==
LOC: JP.ED 01:09
DX: K03.81 Cracked tooth (principal); Z79.899 Other long term (current) drug therapy; Z88.8 Allergy status to other drugs, medicaments and biological substances
CPT/HCPCS: 96372; 99282; J1885